=== PATIENT | female | born 2005 | race African-American/Black ===

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

== ENCOUNTER 2023-08-03 11:22 | Emergency (ER) | payer BC, SELFPAY ==
--- NOTE | ~2023-08-03 | US_ITS ---
EXAMINATION: US OB transvaginal DATE: 08/03/2023 13:11 INDICATION: Abdominal pain and vaginal bleeding during first trimester TECHNIQUE: Real-time pelvic transabdominal and transvaginal ultrasound was performed. COMPARISON: 11/07/2022 FINDINGS: The uterus measures 9.3 x 5.7 x 5.6 cm. There is a 4.6 x 3.8 x 4.2 cm isoechoic mass of the right uterine body which has the appearance of an intramural fibroid. There is an intrauterine gesta tional sac. A yolk sac is identified. heart motion is identified measuring 122 beats per minute (bpm) by M-mode Doppler. The crown rump length measures 4 mm, which correlates with an estimat ed gestational age of 6 weeks and 1 day(s) (+/-) 4 day(s). The right ovary measures 3.5 x 2.1 x 2.1 cm. The left ovary measures 3.0 x 1.7 x 2.0 cm. There is nor mal vascular flow in the ovaries. There is a small amount of free fluid in the pelvis. IMPRESSION: 1. Live intrauterine with an estimated gestational age of 6 weeks and 1 day(s) (+/-) 4 day( s) and an estimated delivery date of 03/27/2024. 2. Uterine mass with the appearance of a fibroid. Reviewed, dictated and finalized at location B. RAFT [employer]LECT[employer]ICIAN IMPRESSION: 1. Live intrauterine with an estimated gestational age of 6 weeks and 1 day(s) (+/-) 4 day(s) and an estimated delivery date of 03/27/2024. 2. Uterine mass with the appearance of a fibroid.
[2023-08-03 11:24] VITALS: BP 120/66; PULSE 99; RESP 18; TEMP 36.6; O2SAT 100
--- NOTE | 2023-08-03 11:45 | ED.PREGNANCY ---
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 She attributes it to underlying uterine fibroids. Positive test at home 2 weeks ago. She is also having abdominal pain and pain along mons pubis. Spotting started a few weeks ago. Light pink and then stopped. Restarted but only when she urinates. LMP 05/31/23; reported as normal (last period before that was May 05-). Has not taken any medications for pain. No dysuria, hematuria, urgency, frequency. OBGyn Kenna [facility] though has not yet established with them for this . Not currently taking any medications, no prenatals. Related Data Allergies Allergy/AdvReac Type Severity Reaction Status Date / Time No Known Allergies Allergy Verified 11/07/22 13:24 [facility] Past Medical History Medical History (Updated 08/12/23 @ 00:28 by Jasmine Simental MD) Fibroid, uterine Exam Narrative: GENERAL: Well-appearing, well-nourished, and in no acute distress. HEAD: Normocephalic, atraumatic. EYES: Non injected, non icteric; mild conjunctival pallor ENT: Nares clear, no rhinorrhea or epistaxis. NECK: Supple. CHEST: Speaks in full sentences No respiratory distress. HEART: Regular rate and rhythm. . ABDOMEN: Soft, nondistended. No TTP of abdomen or pelvis which is w/o rigidity or guarding. EXTREMITIES: Normal range of motion. No edema. SKIN: Warm, dry, no rash. NEURO: No focal deficits. Alert and oriented x3. PSYCH: Normal mood and affect. Course Vital Signs Vital signs: Vital Signs Temperature 98 F 08/03/23 11:24 Pulse Rate 99 08/03/23 11:24 Respiratory Rate 18 08/03/23 11:24 Blood Pressure 120/66 08/03/23 11:24 Pulse Oximetry 100 08/03/23 11:24 Oxygen Delivery Room Air 08/03/23 11:24 Temperature 97.5 F L 08/03/23 14:56 Pulse Rate 65 08/03/23 14:56 Respiratory Rate 16 08/03/23 14:56 Blood Pressure 118/71 08/03/23 14:56 Pulse Oximetry 100 08/03/23 14:56 Oxygen Delivery Room Air 08/03/23 11:24 MDM - OB/Uterine Contractions MDM Narrative Medical decision making narrative: 18 yo female with LMP 05/31/23 who presents with abdominal pain and vaginal spotting. History of fibroids which is what patient believes this is. Has not established with OBGyn during this ; location of fetus unknown at present. Hgb stable. US demonstrates IUP. Patient counseled on uncertain status at this point of . She is given strict ED return precautions and verifies understanding. Has eaten and PO challenged without emesis. Will Follow up with OBGYN. Stable for discharge. Differential Diagnosis Differential diagnosis: Likely other (normal ; ectopic ; spectrum of miscarriage) Lab Data Attestation: I reviewed the patient's lab results. Lab results narrative: Anemia, not transfusable. Normal renal function. Urinalysis without bacteriuria. 08/03/23 12:15 08/03/23 12:15 Labs: Lab Results 08/03/23 Range/Units 12:15 WBC 6.3 (4.5-10.0) K/mm3 RBC 4.56 (4.2-5.4) M/mm3 Hgb 11.8 L (12.0-15.0) g/dL Hct 37.4 (37.0-47.0) % MCV 82.0 (80-100) fl MCH 25.9 L (26-34) pg MCHC 31.6 L (32-36) g/dl RDW 14.0 (11.5-14.5) % Plt Count 276 (150-375) k/mm3 MPV 8.7 (7.4-10.4) fl Immature Gran % (Auto) 0.3 (0-0.5) % Neut % (Auto) 72.8 (45.5-73.1) % Lymph % (Auto) 18.7 (18.3-44.2) % [place] % (Auto) 7.7 (2.6-8.5) % Eos % (Auto) 0.2 (0-4.4) % Baso % (Auto) 0.3 (0.2-1.2) % Lymph # (Auto) 1.17 (0.9-3.2) K/mm3 [place] # (Auto) 0.5 (0.1-0.6) K/mm3 Eos # (Auto) 0.0 (0-0.3) K/mm3 Baso # (Auto) 0.0 (0.0-0.1) K/mm3 Abs Immat Gran (auto) 0.02 (0.00-0.031) K
[2023-08-03 12:24] LABS: Basophils Percent Auto 0.3 % (0.2-1.2); Eosinophils Percent Auto 0.2 % (0-4.4); Hematocrit 37.4 % (37.0-47.0); Hemoglobin 11.8 g/dL (12.0-15.0); Immature Granulocyte Absolute 0.02 K/mm3 (0.00-0.031); Immature Granulocyte Percent A 0.3 % (0-0.5); Lymphocytes Absolute Auto 1.17 K/mm3 (0.9-3.2); Lymphocytes Percent Auto 18.7 % (18.3-44.2); Mean Corpuscular HGB Conc 31.6 g/dl (32-36); Mean Corpuscular Hemoglobin 25.9 pg (26-34); Mean Platelet Volume 8.7 fl (7.4-10.4); Monocytes Absolute Auto 0.5 K/mm3 (0.1-0.6); Monocytes Percent Auto 7.7 % (2.6-8.5); Neutrophils Absolute Auto 4.6 K/mm3 (1.3-6.7); Neutrophils Percent Auto 72.8 % (45.5-73.1); Platelet Count Result 276 k/mm3 (150-375); Red Blood Count 4.56 M/mm3 (4.2-5.4); White Blood Count 6.3 K/mm3 (4.5-10.0)
[2023-08-03 12:26] LABS: Appearance Urine Clear (Clear); Bilirubin Urine Negative (Negative); Blood Urine Negative (Negative); Color Urine Yellow (Yellow); Glucose Urine UA Negative (Negative); Ketones Urine Negative (Negative); Leukocyte Esterase Ur Negative LEU/UL (Negative); Nitrate Urine Negative (Negative); Protein Urine Negative (Negative); Specific Grav Ur 1.019 (1.001-1.035); pH Urine 7.5 (5.0-9.0)
[2023-08-03 12:34] LABS: Add Urine Microscopic? NO
[2023-08-03 12:37] LABS: Alanine Aminotransferase 15 U/L (6-35); Albumin Level 4.4 g/dL (3.5-5.1); Alkaline Phosphatase 47 U/L (38-126); Anion Gap 9 mmol/L (8-16); Aspartate Amino Transferase 25 U/L (14-36); Bilirubin,Total 0.4 mg/dL (0.2-1.3); Blood Urea Nitrogen 8 mg/dL (7-17); Calcium 9.2 mg/dL (8.4-10.2); Carbon Dioxide 24 mmol/L (22-30); Chloride 103 mmol/L (98-107); Estimated CRCL calculation 70 ml/min; Estimated Glomerular Filt Rate > 60; Glucose 94 mg/dL (65-110); Potassium 3.9 mmol/L (3.4-5.0); Sodium 136 mmol/L (137-145)
[2023-08-03] MEDS: ACETAMINOPHEN 325 MG TABLET 650 MG PO (13:01)
[2023-08-03 14:56] VITALS: BP 118/71; PULSE 65; RESP 16; TEMP 36.4; O2SAT 100
== END 2023-08-03 14:58 | disposition home or self-care (01) ==
PROVIDERS: Emergency Provider Student in an Organized Health Care Education/Training Program
DX: O20.9 Hemorrhage in early pregnancy, unspecified (principal); O99.891 Other specified diseases and conditions complicating pregnancy; N85.9 Noninflammatory disorder of uterus, unspecified; Z3A.01 Less than 8 weeks gestation of pregnancy
CPT/HCPCS: 36415; 76817; 80053; 81003; 81025; 84702; 85025; 86850; 86900; 86901; 99284; A9270

== ENCOUNTER 2025-03-24 10:34 | Observation (INO) | payer BC, SELFPAY ==
[2025-03-24] VITALS (9 sets, daily range): BP systolic 105–119; BP diastolic 64–77; PULSE 63–81; RESP 12–22; TEMP 36.6–36.8; O2SAT 98–100; BMI 31.6
--- NOTE | ~2025-03-24 | CT_ITS ---
EXAMINATION: CT abdomen pelvis w con DATE: 03/24/2025 11:53 INDICATION: Right lower quadrant pain. TECHNIQUE: Computed tomography (CT) of the abdomen and pelvis was performed with intravenous contrast . The dose-length product was 391.36 mGy-cm. COMPARISON: CT abdomen and pelvis 11/07/2022 FINDINGS: Lung bases are clear. Moderate amount of sludge in the gallbladder. Mild central intrahepatic biliary ductal dilatation. No liver mass. The spleen, adrenal glands, kidneys, pancreas unremarkable. No enlarged lymph nodes in the abdomen or pelvis. Appendix is not dilated. There is a 3 mm appendicolith in the appendix. Uterus and ovaries are markedly heterogeneous with a small amount of surrounding fluid and fat strand ing. IMPRESSION: 1. Uterus and ovaries are markedly heterogeneous with a small amount of surrounding fluid and fat str anding. Findings are nonspecific. An infectious process is possible. Other etiologies are possible. A pelvic ultrasound is recommended. 2. No CT evidence for acute appendicitis. 3. Moderate amount of sludge in the gallbladder. Mild central intrahepatic biliary ductal dilatation. An ultrasound of the gallbladder is suggested. Reviewed, dictated and finalized at location A. IMPRESSION: 1. Uterus and ovaries are markedly heterogeneous with a small amount of surroun ding fluid and fat stranding. Findings are nonspecific. An infectious process i s possible. Other etiologies are possible. A pelvic ultrasound is recommended. 2. No CT evidence for acute appendicitis. 3. Moderate amount of sludge in the gallbladder. Mild central intrahepatic bili edilson ductal dilatation. An ultrasound of the gallbladder is suggested.
--- NOTE | ~2025-03-24 | US_ITS ---
EXAMINATION: US pelvic complete w TV DATE: 03/24/2025 13:48 INDICATION: Lower abdominal pain TECHNIQUE: Multiple transabdominal and endovaginal sonographic images of the pelvis were obtained. COMPARISON: None. FINDINGS: The uterus measures 8.0 x 4.2 x 4.9 cm. The endometrial complex measures 6 mm in thickness. section scar along the anterior lower uterine segment. 3.1 cm hypoechoic fibroid at the right-sided the uterine fundus. The right ovary measures 2.9 x 1.7 x 1.9 cm. The left ovary measures 3.1 x 1.8 x 2.3 cm. There are multiple small anechoic cysts/follicles in both ovaries. These are slightly larger and more numerous in the left ovary measuring up to 12 mm in maximal diameter. Vascular flow with art erial waveforms identified in both ovaries on color Doppler. There is a small amount of likely physio logic anechoic free fluid in the pelvis. IMPRESSION: 1. Severe in section scar along the anterior lower uterine segment and 3.1 cm likely fibroid at the r ight-sided the uterine fundus. Reviewed, dictated and finalized at location A. IMPRESSION: 1. Severe in section scar along the anterior lower uterine segment and 3.1 cm l ikely fibroid at the right-sided the uterine fundus.
--- NOTE | ~2025-03-24 | XR_ITS ---
EXAMINATION: XR ERCP DATE: 03/26/2025 13:50 CDT INDICATION: ABD PAIN . TECHNIQUE: 2 fluoroscopic images of the right upper quadrant were obtained during ERCP. Fluoroscopy e xposure time was 152.1 seconds. Air Kerma 16.36 mGy. DAP 0.50 mGym2. COMPARISON: Intraoperative cholangiogram 03/25/2025 FINDINGS/IMPRESSION: Fluoroscopic documentation of ERCP. Please refer to the operative note for complete procedural detail s. Reviewed, dictated and finalized at location K.
--- NOTE | ~2025-03-24 | XR_ITS ---
EXAMINATION: XR cholangiogram surg 1st inj DATE: 03/25/2025 17:25 CDT INDICATION: LAP HUSAM WITH IOCS . TECHNIQUE: 1 fluoroscopic image of the right upper quadrant were obtained during laparoscopic cholecy stectomy. Fluoroscopy exposure time was 6.9 seconds. Air Kerma 8.3 mGy. DAP 1.7 mGym2. COMPARISON: Right upper quadrant ultrasound and CT abdomen pelvis 03/24/2025 FINDINGS: A single image is available for review. Cine images were obtained but not saved or provided for readi ng. Catheter in the cystic duct. Somewhat long appearing cystic duct. Mild common hepatic and common bile duct dilation. The distal duct tapers, with no filling distal filling defect or forward movement of contrast into the duodenum. Small filling defect in a right hepatic bile duct branch, presumably a gas bubble, although a small stone is not excluded. IMPRESSION: Intraoperative angiogram during endoscopic cholecystectomy. Please refer to the operative note for co mplete procedural details. Reviewed, dictated and finalized at location K. IMPRESSION: Intraoperative angiogram during endoscopic cholecystectomy. Please refer to the operative note for complete procedural details.
--- NOTE | ~2025-03-24 | US_ITS ---
US right upper quadrant INDICATION: Right upper quadrant pain PROCEDURE: Realtime limited abdominal ultrasound. COMPARISON: No prior studies for comparison. FINDINGS: The pancreas is normal without focal mass or pancreatic ductal dilation. Liver echotexture is normal without focal mass or intrahepatic biliary dilatation. There is normal directional flow i n the portal vein. No gallbladder wall thickening or pericholecystic fluid. Common bile duct measures 7 mm. There are gallstones and sludge in the gallbladder.There is a sonographic Meek's sign. IMPRESSION: 1: There are gallstones and sludge in the gallbladder. There is a sonographic Meek's sign. The find ings are concerning for acute cholecystitis. However, there is no gallbladder wall thickening. Consid er a HIDA scan for further evaluation. Reviewed, dictated and finalized at location A. IMPRESSION: 1: There are gallstones and sludge in the gallbladder. There is a sonographic M urphy's sign. The findings are concerning for acute cholecystitis. However, the re is no gallbladder wall thickening. Consider a HIDA scan for further evaluati on.
[2025-03-24 11:02] LABS: BEDSIDEPREGUCG Negative (Negative)
[2025-03-24 11:14] LABS: Hematocrit 37.2 % (37.0-47.0); Hemoglobin 12.3 g/dL (12.0-15.0); Immature Granulocyte Percent A 0.1 % (0-0.5); Lymphocytes Absolute Auto 1.63 K/mm3 (0.9-3.2); Mean Corpuscular HGB Conc 33.1 g/dl (32-36); Mean Corpuscular Hemoglobin 26.6 pg (26-34); Mean Corpuscular Volume 80.3 fl (80-100); Nucleated Red Blood Cells Absolute Auto 0.000 K/mm3 (0.0-0.012); Nucleated Red Blood Cells Perc 0.0 % (0.0-0.2); Platelet Count Result 266 k/mm3 (150-375); Red Blood Count 4.63 M/mm3 (4.2-5.4); White Blood Count 8.0 K/mm3 (4.5-10.0)
[2025-03-24 11:18] LABS: Add Urine Microscopic? YES; Appearance Urine Clear (Clear); Glucose Urine UA Negative (Negative); Leukocyte Esterase Ur Trace LEU/UL (Negative); Nitrate Urine Positive (Negative); Non Pathogenic Casts 0-2; Specific Grav Ur 1.036 (1.001-1.035)
--- OUTSIDE RECORDS SUMMARY | 2025-03-24 11:21 | XMS_ITS | Clinical Summary ---
Author Organization [facility] Address [facility] [place] [address] Care Team Providers Care Facility Sales And Admin Name Role Phone None, Provider MD Primary Care Provider Unavaila ble Allergies No known active allergies Medications vitamin, low iron, ( VITAMIN WITH IRON) 27-0.8 MG tablet Take 1 tablet by mouth daily. Active Active Problems Problem Noted Date Diagnosed Date S/P section 03/15/2024 Resolved Problems Problem Noted Date Diagnosed Date Resolved Date ([facility]) 03/12/2024 03/15/20 24 Social History Tobacco Use Types Packs/Day Years Used Date Smoking Tobacco: Never Smokeless Tobacco: Never Tobacco Cessation:Counseling Given: Not Answered Alcohol Use Standard Drinks/Week Comments Not Currently 0 (1 standard drink = 0.6 oz pur e alcohol) B1300 Health Literacy Answer Date Recor ded How often do you need to hav e someone help you when you read instructions, pamphlets, or other written material from your doctor or pharmacy? Rarely 03/13/2024 [facility] Utilities Answer Date Recorded In the past 12 months has [facility] [employer], [employer], or water [employer] threatened to shut off services in your home? No 03/13/2024 Humiliation, Afraid, Rape, and Kick questionnair e Answer Date Recorded Within the last year, have y ou been afraid of your partner or ex-partner? No 03/13/2024 Within the last year, have y ou been humiliated or emotionally abused in other ways by your partner or ex-partner? No Within the last year, have y ou been kicked, hit, slapped, or otherwise physically hurt by your partner or ex-partner? No 03/13/2024 Within the last year, have y ou been raped or forced to have any kind of sexual activity by your partner or ex-partner? No 03/13/2024 Social Connection and Isolat ion Panel [NHANES] Answer Date Recorded In a typical week, how many times do you talk on the phone with family, friends, or neighbors? More than three times a week 03/13/2024 How often do you get togethe r with friends or relatives? Twice a week 03/13/2024 How often do you attend chur or sikhism services? Never 03/13/2024 Do you belong to any clubs o r organizations such as episcopal groups, unions, fraternal or athletic groups, or school groups? No 03/13/2024 How often do you attend meet ings of the clubs or organizations you belong to? Never 03/13/2024 Are you , , di vorced, , never , or living with a partner? Never 03/13/2024 AUDIT-C Answer Date Recorded Q1: How often do you have a drink containing alcohol? Never 03/13/2024 Q2: How many drinks containi ng alcohol do you have on a typical day when you are drinking? Patient does not drink Q3: How often do you have si x or more drinks on one occasion? Never 03/13/2024 Overall Financial Resource Strain (CARDIA) Answe r Date Recorded How hard is it for you to pa y for the very basics like food, housing, medical care, and heating? Not hard at all 03/13/2024 PHQ-2 Answer Date Recorded Patient Health Questionnaire-2 Score 0 03/14/2024 [facility] - Occupational Stress Questionnaire Answer Date Recorded Do you feel stress - tense, restless, nervous, or anxious, or unable to sleep at night because your mind is troubled all the time - these days? Not at all 03/13/2024 Exercise Vital Sign Answer Date Recorde d On average, how many days pe r week do you engage in moderate to strenuous exercise (like a brisk walk)? 2 days 03/13/2024 On average, how many minutes do you engage in exercise at this level? 20 min 03/13/2024 Hunger Vital Sign Answer Date Recorded Within the past 12 months, y ou worried that your food would run out before you got the money to buy more. Never true 03/13/20 24 Within the past 12 months, t he food you bought just didn't last and you didn't have money to get more. Never true 03/13/2024 PRAPARE - Transportation Answer Date Re corded In the past 12 months, has l ack of transportation kept you from medical appointments or from getting medications? No 08/2023 In the past 12 months, has l ack of transportation kept you from meetings, work, or from getting things needed for daily living? No 03/13/2024 Housing Stability Vital Sign Answer Sergio e Recorded In the last 12 months, was t here a time when you were not able to pay the mortgage or rent on time? Patient declined 03/13/20 24 Number of Times Moved in the Last Year Not on fi le 03/13/2024 Homeless in the Last Year Not on file 2023 Comments No Sex and Gender Information Value Date Recorded Sex Assigned at Not on file Legal Sex Female 8:59 PM CDT Gender Identity Not on file Sexual Orientation Not on file Last Filed Vital Signs Vital Sign Reading Time Taken Comments Blood Pressure 117/83 03/15/2024 9:00 AM CDT Pulse 102 03/15/2024 9:00 AM CDT Temperature 37 C (98.6 F) 03/15/2024 9:00 AM CDT Respiratory Rate 18 03/15/2024 9:00 AM CDT Oxygen Saturation 98% 03/15/2024 9:00 AM CDT Inhaled Oxygen Concentration - - Weight 78.9 kg (174 lb) 03/12/2024 3:00 PM CDT Height 152.4 cm (5') 03/12/2024 3:00 PM CDT Body Mass Index 33.98 03/12/2024 3:00 PM CDT Plan of Treatment Health Maintenance Due Date Last Done Comments Cervical Cancer Screening Pap Smear (Age 21 to 29) Every 3 Years 2003 Cervical Cancer Screening 2003 Annual Physical 2006 Chlamydia Screening Females ages 16-24 2019 Meningococcal B Vaccine (1 of 2 - Standard) 2019 Hepatitis C 2021 COVID-19 Vaccine ( season) 2024 08/11/2021, 11/29/2020, 11/08/2020 DTaP, Tdap and Td Vaccines (9 - Td or Tdap) 01/24/2034 01/25/2024, 02/05/2019, 01/13/2014, Additional history exists Hepatitis B Vaccines Completed 2003, 2003, 2003, Additional history exists Pneumococcal Vaccine: Pediatrics (0 to 5 Years) and At-Risk Patients (6 to 49 Years) Aged Out 07/18/2006, 2003, 2003, Additional history exists No longer eligible based on patient's age to complete this topic HPV Vaccines Completed 05/17/2015, 07/13, 07/22/2014, Additional history exists Meningococcal Vaccine Aged Out 02/05/2019, 014 No longer eligible based on patient's age to complete this topic RSV Immunizations Under 20 Months Aged Out No longer eligible based on patient's age to complete this topic Insurance [facility] [employer] [facility] Advance Directives * Full Code (Latest Code Status on File) Date Activated Date Inactivated Comments 03/13/2024 5:15 AM 03/15/2024 7:49 PM * Full Code Date Activated Date Inactivated Comments 03/12/2024 5:32 PM 03/13/2024 2:55 AM Care Teams Facility Sales And Admin Relationship Specialty Start Date End Date None, Provider, MD PCP - General UNKNOWN PHYSICIAN SPECIALTY 03/12/24
[2025-03-24] MEDS: SODIUM CHLORIDE 0.9% IV 1,000 ML 999 ML IV CONT (11:32)
[2025-03-24 11:34] LABS: Alanine Aminotransferase 69 U/L (6-35); Albumin Level 4.3 g/dL (3.5-5.1); Alkaline Phosphatase 81 U/L (38-126); Anion Gap 10 mmol/L (4-12); Aspartate Amino Transferase 99 U/L (14-36); Bilirubin,Total 1.5 mg/dL (0.2-1.3); Blood Urea Nitrogen 8 mg/dL (7-17); Calcium 9.1 mg/dL (8.4-10.2); Carbon Dioxide 25 mmol/L (22-30); Chloride 104 mmol/L (98-107); Estimated CRCL calculation 78 ml/min; Estimated Glomerular Filt Rate > 60; Glucose 95 mg/dL (65-110); Lipase 143 U/L (23-300); Potassium 3.6 mmol/L (3.4-5.0); Sodium 139 mmol/L (137-145); Total Protein 7.8 g/dL (6.3-8.2)
--- NOTE | 2025-03-24 11:37 | ED.ABDPAIN ---
HPI - Abdominal Pain General Chief Complaint: Abdominal Pain <Daina Rojo PA-C - Last Filed: 03/24/25 17:31> Stated Complaint: abdominal pain with vomiting since February <Daina Rojo PA-C - Last Filed: 03/24/25 17:31> Time Seen by Provider: 03/24/25 11:08 <Daina Rojo PA-C - Last Filed: 03/24/25 17:31> Source: patient <Daina Rojo PA-C - Last Filed: 03/24/25 17:31> Mode of arrival: ambulatory <Daina Rojo PA-C - Last Filed: 03/24/25 17:31> Limitations: no limitations <Daina Rojo PA-C - Last Filed: 03/24/25 17:31> History of Present Illness HPI narrative: This is a 18-year-old female that presents emergency department for right-sided abdominal pain. Ongoing over the last several weeks. Reports associated nausea and vomiting. Worse after eating. Denies fevers, dysuria, hematuria, diarrhea. <Daina Rojo PA-C - Last Filed: 03/24/25 17:31> Related Data Allergies/Adverse Reactions: Allergies Allergy/AdvReac Type Severity Reaction Status Date / Time No Known Allergies Allergy Verified 03/24/25 10:58 <Daina Rojo PA-C - Last Filed: 03/24/25 17:31> Review of Systems Review of Systems: All systems reviewed & are unremarkable except as noted in HPI and below <Daina Rojo PA-C - Last Filed: 03/24/25 17:31> [facility] Past Medical History Medical History: Medical History (Updated 03/24/25 @ 17:26 by Daina Rojo PA-C) Fibroid, uterine <Daina Rojo PA-C - Last Filed: 03/24/25 17:31> Surgical History Surgical History: Surgical History (Updated 03/24/25 @ 11:38 by Daina Rojo PA-C) History of section <Daina Rojo PA-C - Last Filed: 03/24/25 17:31> Exam Narrative: GENERAL: Well-appearing, well-nourished, and in no acute distress. HEAD: Normocephalic, atraumatic. EYES: EOMI. CHEST: Clear to auscultation. No respiratory distress. No wheezes rales or rhonchi HEART: Regular rate and rhythm. No murmur heard. Normal peripheral pulses. ABDOMEN: Soft, nondistended, normal active bowel sounds. Tender to palpation in the right upper quadrant, without guarding EXTREMITIES: Normal range of motion. No edema. SKIN: Warm, dry, no rash. NEURO: No focal deficits. Alert and oriented x3. PSYCH: Normal mood and affect <Daina Rojo PA-C - Last Filed: 03/24/25 17:31> Course Course Emergency Course: Spoke with patient about her workup and conversation with surgery. She does not feel comfortable going home at this time <Daina Rojo PA-C - Last Filed: 03/24/25 17:31> [employer] WORKER [employer]IN[employer]/PA Physician Supervision For this patient encounter, I reviewed the SOCIAL WORKER CLINICAL or PA documentation, treatment plan, and was responsible for the medical decision making; and I had [id number] time with this patient. <Doni Rodriguez MD - Last Filed: 03/24/25 17:45> Consultations Consultation #1: Spoke with Dr. Miller about patient and workup. Will be given option for inpatient management versus follow up in clinic. <Daina Rojo PA-C - Last Filed: 03/24/25 17:31> Date: 03/24/25 <Daina Rojo PA-C - Last Filed: 03/24/25 17:31> Consultation #2: Spoke with hospitalist about patient workup who accepts admission <Daina Rojo PA-C - Last Filed: 03/24/25 17:31> Date: 03/24/25 <Daina Rojo PA-C - Last Filed: 03/24/25 17:31> Vital Signs Vital signs: Vital Signs Pulse Rate 81 03/24/25 10:50 Respiratory Rate 20 03/24/25 10:50 Blood Pressure 107/73 03/24/25 10:50 Pulse Oximetry 98 03/24/25 10:50 Oxygen Delivery Room Air 03/24/25 10:50 Temperature 98.2 F 08/12/25 16:19 Pulse Rate 68 03/24/25 17:04 Respiratory Rate 13 03/24/25 17:04 Blood Pressure 109/64 03/24/25 17:04 Pulse Oximetry 100 03/24/25 17:04 Oxygen Delivery Room Air 03/24/25 10:50 <Daina Rojo PA-C - Last Filed: 03/24/25 17:31> Vital Signs Pulse Rate 81 03/24/25 10:50 Respiratory Rate 20 03/24/25 10:50 Blood Pressure 107/73 03/24/25 10:50 Pulse Oximetry 98 03/24/25 10:50 Oxygen Delivery Room Air 03/24/25 10:50 Temperature 98.2 F 03/24/25 16:19 Pulse Rate 68 03/24/25 17:04 Respiratory Rate 13 03/24/25 17:04 Blood Pressure 109/64 03/24/25 17:04 Pulse Oximetry 100 03/24/25 17:04 Oxygen Delivery Room Air 03/24/25 10:50 <Doni Rodriguez MD - Last Filed: 03/24/25 17:45> MDM - Abdominal Pain MDM Narrative Medical decision making narrative: Patient presents the emergency department for abdominal pain, nausea and vomiting. Ongoing over the last couple of weeks. Her vitals are stable. She is afebrile and nontoxic appearing. Cbc without leukocytosis. Metabolic panel with transaminitis, mild hyperbilirubinemia. Lipase is normal. Urine is nitrite positive, although many squamous epithelial cells noted. This will be sent for culture. Patient denies any urinary symptoms. test is negative. CT abdomen pelvis shows uterus and ovaries markedly heterogenous, nonspecific. Recommend pelvic ultrasound. Moderate amount of sludge in the gallbladder. Mild central intrahepatic biliary ductal dilation. Ultrasound suggested. Right upper quadrant ultrasound shows gallstones, sludge in the gallbladder. Sonographic Meek sign. Pelvic ultrasound shows severe scar along the lower anterior uterine segment, uterine fibroid, ovarian cysts. Spoke with Dr. Miller about patient and workup. Will be given option for inpatient management versus follow up in clinic. Spoke with patient about her workup and conversation with surgery. She does not feel comfortable going home at this time. Spoke with hospitalist about patient workup who accepts admission <Daina Rojo PA-C - Last Filed: 03/24/25 17:31> Differential Diagnosis Differential diagnosis: Likely abdominal pain, gastroenteritis and other (Biliary colic, cholecystitis) <Daina Rojo PA-C - Last Filed: 03/24/25 17:31> Lab Data Attestation: I reviewed the patient's lab results. <Daina Rojo PA-C - Last Filed: 03/24/25 17:31> Result diagrams: 03/24/25 10:59 03/24/25 10:59 <Daina Rojo PA-C - Last Filed: 03/24/25 17:31> Labs: Lab Results 03/24/25 03/24/25 Range/Units 10:58 10:59 WBC 8.0 (4.5-10.0) K/mm3 RBC 4.63 (4.2-5.4) M/mm3 Hgb 12.3 (12.0-15.0) g/dL Hct 37.2 (37.0-47.0) % MCV 80.3 (80-100) fl MCH 26.6 (26-34) pg MCHC 33.1 (32-36) g/dl RDW 13.2 (11.5-14.5) % Plt Count 266 (150-375) k/mm3 MPV 8.5 (7.4-10.4) fl Immature Gran % (Auto) 0.1 (0-0.5) % Neut % (Auto) 70.5 (45.5-73.1) % Lymph % (Auto) 20.4 (18.3-44.2) % [place] % (Auto) 8.3 (2.6-8.5) % Eos % (Auto) 0.3 (0-4.4) % Baso % (Auto) 0.4 (0.2-1.2) % Lymph # (Auto) 1.63 (0.9-3.2) K/mm3 [place] # (Auto) 0.7 H (0.1-0.6) K/mm3 Eos # (Auto) 0.0 (0-0.3) K/mm3 Baso # (Auto) 0.0 (0.0-0.1) K/mm3 Abs Immat Gran (auto) 0.01 (0.00-0.031) K/mm3 Absolute Neuts (auto) 5.6 (1.3-6.7) K/mm3 Absolute Nucleated RBC 0.000 (0.0-0.012) K/mm3 Nucleated RBC % 0.0 (0.0-0.2) % Sodium 139 (137-145) mmol/L Potassium 3.6 (3.4-5.0) mmol/L Chloride 104 (98-107) mmol/L Carbon Dioxide 25 (22-30) mmol/L Anion Gap 10 (4-12) mmol/L BUN 8 (7-17) mg/dL Creatinine 0.85 (0.7-1.0) mg/dL Estim Creat Clear Calc 78 ml/min Estimated GFR > 60 (59 - ) Glucose 95 (65-110) mg/dL Calcium 9.1 (8.4-10.2) mg/dL Total Bilirubin 1.5 H (0.2-1.3) mg/dL AST 99 H (14-36) U/L ALT 69 H (6-35) U/L Alkaline Phosphatase 81 (38-126) U/L Total Protein 7.8 (6.3-8.2) g/dL Albumin 4.3 (3.5-5.1) g/dL Lipase 143 (23-300) U/L Urine Color Dark yellow (Yellow) Urine Appearance Clear (Clear) Urine pH 6.5 (5.0-9.0) Ur Specific [place] 1.036 H (1.001-1.035) Urine Protein 1+ H (Negative) mg/dL Urine Glucose (UA) Negative (Negative) mg/dL Urine Ketones Trace H (Negative) mg/dL Ur Blood (Man) Negative (Negative) Urine Nitrate Positive H (Negative) Urine Bilirubin 2+ H (Negative) Urine Urobilinogen 1.0 (<2.0) mg/dL Leukocyte Esterase Rfl Trace H (Negative) GLENDA/UL Urine RBC 0-2 (0-2) /hpf Urine WBC 0-5 (0-3) /hpf Ur Squamous Epith Cells Many H (Few) /hpf Urine Bacteria 2+ H /hpf Urine Casts 0-2 POC Urine HCG, Qual Negative (Negative) <Daina Rojo PA-C - Last Filed: 03/24/25 17:31> Lab Results 03/24/25 03/24/25 Range/Units 10:58 10:59 WBC 8.0 (4.5-10.0) K/mm3 RBC 4.63 (4.2-5.4) M/mm3 Hgb 12.3 (12.0-15.0) g/dL Hct 37.2 (37.0-47.0) % MCV 80.3 (80-100) fl MCH 26.6 (26-34) pg MCHC 33.1 (32-36) g/dl RDW 13.2 (11.5-14.5) % Plt Count 266 (150-375) k/mm3 MPV 8.5 (7.4-10.4) fl Immature Gran % (Auto) 0.1 (0-0.5) % Neut % (Auto) 70.5 (45.5-73.1) % Lymph % (Auto) 20.4 (18.3-44.2) % [place] % (Auto) 8.3 (2.6-8.5) % Eos % (Auto) 0.3 (0-4.4) % Baso % (Auto) 0.4 (0.2-1.2) % Lymph # (Auto) 1.63 (0.9-3.2) K/mm3 [place] # (Auto) 0.7 H (0.1-0.6) K/mm3 Eos # (Auto) 0.0 (0-0.3) K/mm3 Baso # (Auto) 0.0 (0.0-0.1) K/mm3 Abs Immat Gran (auto) 0.01 (0.00-0.031) K/mm3 Absolute Neuts (auto) 5.6 (1.3-6.7) K/mm3 Absolute Nucleated RBC 0.000 (0.0-0.012) K/mm3 Nucleated RBC % 0.0 (0.0-0.2) % Sodium 139 (137-145) mmol/L Potassium 3.6 (3.4-5.0) mmol/L Chloride 104 (98-107) mmol/L Carbon Dioxide 25 (22-30) mmol/L Anion Gap 10 (4-12) mmol/L BUN 8 (7-17) mg/dL Creatinine 0.85 (0.7-1.0) mg/dL Estim Creat Clear Calc 78 ml/min Estimated GFR > 60 (59 - ) Glucose 95 (65-110) mg/dL Calcium 9.1 (8.4-10.2) mg/dL Total Bilirubin 1.5 H (0.2-1.3) mg/dL AST 99 H (14-36) U/L ALT 69 H (6-35) U/L Alkaline Phosphatase 81 (38-126) U/L Total Protein 7.8 (6.3-8.2) g/dL Albumin 4.3 (3.5-5.1) g/dL Lipase 143 (23-300) U/L Urine Color Dark yellow (Yellow) Urine Appearance Clear (Clear) Urine pH 6.5 (5.0-9.0) Ur Specific [place] 1.036 H (1.001-1.035) Urine Protein 1+ H (Negative) mg/dL Urine Glucose (UA) Negative (Negative) mg/dL Urine Ketones Trace H (Negative) mg/dL Ur Blood (Man) Negative (Negative) Urine Nitrate Positive H (Negative) Urine Bilirubin 2+ H (Negative) Urine Urobilinogen 1.0 (<2.0) mg/dL Leukocyte Esterase Rfl Trace H (Negative) GLENDA/UL Urine RBC 0-2 (0-2) /hpf Urine WBC 0-5 (0-3) /hpf Ur Squamous Epith Cells Many H (Few) /hpf Urine Bacteria 2+ H /hpf Urine Casts 0-2 POC Urine HCG, Qual Negative (Negative) <Doni Rodriguez MD - Last Filed: 03/24/25 17:45> Imaging Data Radiologist's impression: ITS Impressions Abdomen/Pelvis CT 03/24/25 11:59 IMPRESSION: 1. Uterus and ovaries are markedly heterogeneous with a small amount of surrounding fluid and fat stranding. Findings are nonspecific. An infectious process is possible. Other etiologies are possible. A pelvic ultrasound is recommended. 2. No CT evidence for acute appendicitis. 3. Moderate amount of sludge in the gallbladder. Mild central intrahepatic biliary ductal dilatation. An ultrasound of the gallbladder is suggested. Upper Quadrant Ultrasound 03/24/25 13:54 IMPRESSION: 1: There are gallstones and sludge in the gallbladder. There is a sonographic Meek's sign. The findings are concerning for acute cholecystitis. However, there is no gallbladder wall thickening. Consider a HIDA scan for further evaluation. Pelvic/Transvag US 03/24/25 13:57 IMPRESSION: 1. Severe in section scar along the anterior lower uterine segment and 3.1 cm likely fibroid at the right-sided the uterine fundus. <Daina Rojo PA-C - Last Filed: 03/24/25 17:31> ITS Impressions Abdomen/Pelvis CT 03/24/25 11:59 IMPRESSION: 1. Uterus and ovaries are markedly heterogeneous with a small amount of surrounding fluid and fat stranding. Findings are nonspecific. An infectious process is possible. Other etiologies are possible. A pelvic ultrasound is recommended. 2. No CT evidence for acute appendicitis. 3. Moderate amount of sludge in the gallbladder. Mild central intrahepatic biliary ductal dilatation. An ultrasound of the gallbladder is suggested. Upper Quadrant Ultrasound 03/24/25 13:54 IMPRESSION: 1: There are gallstones and sludge in the gallbladder. There is a sonographic Meek's sign. The findings are concerning for acute cholecystitis. However, there is no gallbladder wall thickening. Consider a HIDA scan for further evaluation. Pelvic/Transvag US 03/24/25 13:57 IMPRESSION: 1. Severe in section scar along the anterior lower uterine segment and 3.1 cm likely fibroid at the right-sided the uterine fundus. <Doni Rodriguez MD - Last Filed: 03/24/25 17:45> Critical Care Time Critical Care Time Critical Care Time: No <Daina Rojo PA-C - Last Filed: 03/24/25 17:31> Discharge Plan Discharge Clinical Impression: Biliary colic, Transaminitis <Daina Rojo PA-C - Last Filed: 03/24/25 17:31> Patient Disposition: Still a Patient <TC Power Last Filed: 03/24/25 17:31> Condition: Stable <TC Power Last Filed: 03/24/25 17:31>
[2025-03-24] MEDS: ONDANSETRON INJ 4 MG/2 ML VIAL IV PUSH (11:41)
[2025-03-24] MEDS: MORPHINE SULFATE (*CRX) 4 MG/ML INJ IV PUSH (11:41)
--- OUTSIDE RECORDS SUMMARY | 2025-03-24 12:03 | XMS_ITS | Clinical Summary ---
Author Organization [facility] Address [facility] [place] [address] Care Team Providers Care Cripple Cutter Name Role Phone None, Provider MD Primary Care Provider Unavaila ble Allergies No known active allergies Medications vitamin, low iron, ( VITAMIN WITH IRON) 27-0.8 MG tablet Take 1 tablet by mouth daily. Active Active Problems Problem Noted Date Diagnosed Date S/P section 03/15/2024 Resolved Problems Problem Noted Date Diagnosed Date Resolved Date ([facility]) 03/12/2024 03/15/20 24 Social History Tobacco Use [...] from your doctor or pharmacy? Rarely 03/13/2024 [facility] Utilities Answer Date Recorded In the past 12 months has [facility] listedplaces, [employer], or water [employer] threatened to shut off services in your [...] How often do you attend chur or hoahaoism services? Never 03/13/2024 Do you belong to any clubs o r organizations such as yarsani groups, unions, fraternal or athletic groups, or [...] Recorded Patient Health Questionnaire-2 Score 0 03/14/2024 [facility] - Occupational Stress Questionnaire Answer Date [...] patient's age to complete this topic Insurance [facility] [employer] Payments [facility] Advance Directives * Full Code (Latest Code Status on File) Date Activated Date Inactivated Comments 03/13/2024 5:15 AM 03/15/2024 7:49 PM * Full Code Date Activated Date Inactivated Comments 03/12/2024 5:32 PM 03/13/2024 2:55 AM Care Teams Cripple Cutter Relationship Specialty Start Date End Date None, Provider, MD PCP - General UNKNOWN PHYSICIAN SPECIALTY 03/12/24
[2025-03-24] MEDS: KETOROLAC 15 MG/ML VIAL (*BKC) IV PUSH (14:43)
--- NOTE | 2025-03-24 16:17 | P.CONGS_ITS ---
Assessment and Plan Assessment and plan (1) Biliary colic: Code(s): K80.50 - Calculus of bile duct without cholangitis or cholecystitis without obstruction Status: Acute Assessment and Plan: Patient presented to the ED with roughly 1 month of right upper quadrant pain and nausea and vomiting. The pain recently increased in severity and began radiating to her back. Patient was unable to keep any food down so she eventually presented to the ED. workup included CT of the abdomen and pelvis and right upper quadrant ultrasound that demonstrated gallstones and sludge in the gallbladder. Patient is afebrile with normal white blood cell count. Liver enzymes elevated. Patient will be admitted and kept NPO. Will order MRCP for tomorrow and follow with serial abdominal exams and daily labs. Plan Discussed patient's case and plan of care with Dr. Miller. History of Present Illness Consult details Consult date: 03/24/25 Reason for consult: other (Biliary colic) Requesting physician: Daina Rojo PA-C Narrative: Patient is a 20-year-old female past medical history of uterine fibroid who we have been asked to see in surgical consultation for biliary colic. Patient presented to the ED today with complaints of roughly 1 month of right upper quadrant pain and nausea/vomiting that recently increased in severity last night. Patient states that the nausea and vomiting has been intermittent since February 26 this year. At the beginning of this month she noticed the symptoms increased in severity. Last night she had several episodes of emesis with associated right upper quadrant pain radiating to her back. She tried some broth and a muffin but was unable to keep them down. The pain became excruciating, which prompted the patient to present to the ED. No constipation or diarrhea. No recent sick contacts or travel out of country. Prior abdominal surgeries include . She does not know any specific food triggers, as she states any food she eats now induces vomiting. Last bowel movement this morning. Last ate last night. Workup in the ED included labs that demonstrated a normal white blood cell count. Elevated liver enzymes. Afebrile. CT of the abdomen and pelvis demonstrated moderate amount of sludge in the gallbladder. Mild central intrahepatic biliary ductal dilation. Right upper quadrant ultrasound was obtained and demonstrated no gallbladder wall thickening or pericholecystic fluid. Common bile duct measuring 7 mm. Gallstones and sludge in the gallbladder. Sonographic Meek sign positive. Upon my examination of the patient, she has focal tenderness to right upper quadrant. Of note, CT also demonstrated uterus and ovaries markedly heterogenous with a small amount of surrounding fluid and fat stranding. Findings nonspecific infectious process possible. Other etiologies possible. Pelvic transvaginal ultrasound obtained and demonstrated severe scar along the anterior lower uterine segment 3 0.1 cm likely fibroid a right side of the uterine fundus. Patient states that she does have a history of a fibroid that is managed with her OBGYN. She also notes history of menorrhagia and she is currently on oral control pills. Patient denies any vaginal burning or pain, pain with urination, vaginal discharge, new sexual partners. [facility] Past Medical History Medical History (Updated 03/24/25 @ 17:02 by Elizabeth Campoverde PA-C) Fibroid, uterine Surgical History Surgical History (Updated 03/24/25 @ 11:38 by Daina Rojo PA-C) History of section Meds Home Medications and Allergies Home Medications ?Medication ?Instructions ?Recorded ?Confirmed ?Type ondansetron 4 mg disintegrating 4 mg PO Q8H PRN nausea and 11/07/22 Rx tablet vomiting #14 tabs acetaminophen 500 mg capsule 500 mg PO Q6H PRN pain #14 caps 08/03/23 Rx vitamins 30 30 mg iron-10 30 cap PO DAILY #30 caps 08/03/23 Rx mg iron-folic acid 1 mg-om3 capsule Allergies Allergy/AdvReac Type Severity Reaction Status Date / Time No Known Allergies Allergy Verified 03/24/25 10:58 Vital Signs Vital Signs - 24 hr 03/24/25 10:50 03/24/25 10:56 03/24/25 11:32 Temperature 97.8 F Pulse Rate 81 74 77 Respiratory Rate 20 22 H 12 Blood Pressure 107/73 107/73 119/77 Pulse Oximetry 98 100 100 Oxygen Delivery Room Air 03/24/25 13:40 03/24/25 14:47 Temperature Pulse Rate 68 64 Respiratory Rate 18 18 Blood Pressure 107/71 105/71 Pulse Oximetry 100 100 Oxygen Delivery Exam 2 Const: General: comfortable and no acute distress Eyes: General: appearance normal, both eyes and all related structures Neck: Neck: supple Resp: Effort & Inspection: normal respiratory effort Cardio: Rate: regular rate GI: Inspection: non-distended GI Palp: Yes Soft to palpation, Yes Tenderness to palpation present (GI) (Right upper quadrant), No Guarding due to palpation present (GI) and No Hernia present Skin: General skin exam: normal color Extrem: General: normal to inspection Results Labs 03/24/25 10:59 03/24/25 10:59 Labs: Abnormal lab results 03/24/25 Range/Units 10:59 [place] # (Auto) 0.7 H (0.1-0.6) K/mm3 Total Bilirubin 1.5 H (0.2-1.3) mg/dL AST 99 H (14-36) U/L ALT 69 H (6-35) U/L Ur Specific [place] 1.036 H (1.001-1.035) Urine Protein 1+ H (Negative) mg/dL Urine Ketones Trace H (Negative) mg/dL Urine Nitrate Positive H (Negative) Urine Bilirubin 2+ H (Negative) Leukocyte Esterase Rfl Trace H (Negative) GLENDA/UL Ur Squamous Epith Cells Many H (Few) /hpf Urine Bacteria 2+ H /hpf Diabetes panel 03/24/25 Range/Units 10:59 Sodium 139 (137-145) mmol/L Potassium 3.6 (3.4-5.0) mmol/L Chloride 104 (98-107) mmol/L Carbon Dioxide 25 (22-30) mmol/L BUN 8 (7-17) mg/dL Creatinine 0.85 (0.7-1.0) mg/dL Glucose 95 (65-110) mg/dL Calcium 9.1 (8.4-10.2) mg/dL AST 99 H (14-36) U/L ALT 69 H (6-35) U/L Alkaline Phosphatase 81 (38-126) U/L Total Protein 7.8 (6.3-8.2) g/dL Albumin 4.3 (3.5-5.1) g/dL Calcium panel 03/24/25 Range/Units 10:59 Calcium 9.1 (8.4-10.2) mg/dL Albumin 4.3 (3.5-5.1) g/dL Pituitary panel 03/24/25 Range/Units 10:59 Sodium 139 (137-145) mmol/L Potassium 3.6 (3.4-5.0) mmol/L Chloride 104 (98-107) mmol/L Carbon Dioxide 25 (22-30) mmol/L BUN 8 (7-17) mg/dL Creatinine 0.85 (0.7-1.0) mg/dL Glucose 95 (65-110) mg/dL Calcium 9.1 (8.4-10.2) mg/dL Adrenal panel 03/24/25 Range/Units 10:59 Sodium 139 (137-145) mmol/L Potassium 3.6 (3.4-5.0) mmol/L Chloride 104 (98-107) mmol/L Carbon Dioxide 25 (22-30) mmol/L BUN 8 (7-17) mg/dL Creatinine 0.85 (0.7-1.0) mg/dL Glucose 95 (65-110) mg/dL Calcium 9.1 (8.4-10.2) mg/dL Total Bilirubin 1.5 H (0.2-1.3) mg/dL AST 99 H (14-36) U/L ALT 69 H (6-35) U/L Alkaline Phosphatase 81 (38-126) U/L Total Protein 7.8 (6.3-8.2) g/dL Albumin 4.3 (3.5-5.1) g/dL All other labs normal.
[2025-03-24] MEDS: SODIUM CHLORIDE 0.9% IV 1,000 ML 125 ML IV CONT ×2 (17:30→23:16)
--- NOTE | 2025-03-24 17:40 | ADMGEN ---
This patient, Kenny Mancini, was admitted to Medical Room 346-01. Patient/family oriented to hospital policies and general routines including ID bracelet, bed and alarms, visiting hours, pain management, procedures, bathroom and other care routines, personal items, smoking policy, room service/diet, and visiting hours. Information on how to activate the Rapid Response Team has been discussed. Patient/Family are encouraged to report perceived risks to care and to ask questions if they do not understand what they are told or what they should do.
--- NOTE | 2025-03-24 18:19 | PM.IMHP ---
H&P: HPI History of Present Illness Date/Time: 03/24/25 18:19 Chief Complaint: Abdominal Pain Narrative: 20 y/o F with PMH of presents here with abdominal pain. The patient presents here from home for further evaluation of abdominal pain. She reports onset of right sided abdominal pain starting around February 26. She describes the pain as more so in her lower quadrant, radiation into her lower back, intermittent, and episodes last for a few hours. Abdominal pain is accompanied by a nausea and vomiting. She describes her emesis as bile like. Symptoms worsen postprandial. Will have episodes of sweating and cold sweats when the pain occurs. Endorses loss of appetite. She denies associated body aches, dysuria, hematuria, urinary frequency, or diarrhea. Initial VS at presentation: 97.8? F, HR 81, R 20, 107/73, and 98% on RA. ED workup showed: No leukocytosis, no anemia, no significant electrolyte derangements, total bilirubin 1.5 and AST 99/ALT T 69, UA showed possible infection versus contamination. HCG negative. CT of the abdomen/pelvis showed uterus/ovaries are markedly heterogeneous with a small amount of surrounding fluid and fat stranding, he no CT evidence of acute appendicitis, moderate amount of sludge in the gallbladder and mild central intrahepatic biliary ductal dilation. White upper quadrant ultrasound showed gallstones and sludge in the gallbladder with a positive sonographic Meek sign with no gallbladder wall thickening. Pelvic/transvaginal ultrasound showed a Caesarean section scar along the anterior lower uterine segment in the 3.1 cm likely fibroid at the right-sided uterine fundus. Review of Systems Review of Systems: All systems reviewed & are unremarkable except as noted in HPI and below [facility] Past Medical History Medical History Fibroid, uterine Surgical History Surgical History History of section Family History Family History Grandparent Diabetes mellitus Grandparent Diabetes mellitus Social History Social History Smoking status: Never smoker Alcohol intake: current Drinks per week: 1 Substance use: never Lack of Transportation: No Lack of Food: Never True Current Housing: I Have Housing Concerned About Future Housing: No Difficulty Paying Gas/Electric Bills: No Difficulty Paying for Meds: No Currently Unemployed: YES Education: High School Diploma/GED Difficulty w/ Childcare or Family Care: No Spiritual care concerns: No Meds Home Medications and Allergies Home Medications ?Medication ?Instructions ?Recorded ?Confirmed ?Type acetaminophen 500 mg capsule 500 mg PO Q6H PRN pain #14 caps 08/03/23 03/24/25 Rx norethindrone 1 mg-ethinyl 1 tablet PO HS 03/24/25 03/24/25 History estradiol 20 mcg (21)-iron 75 mg (7) tablet (Gume Fe 09/01 ()) Allergies Allergy/AdvReac Type Severity Reaction Status Date / Time No Known Allergies Allergy Verified 03/24/25 17:50 Vital Signs Vital Signs - 24 hr 03/24/25 10:50 03/24/25 10:56 03/24/25 11:32 Temperature 97.8 F Pulse Rate 81 74 77 Respiratory Rate 20 22 H 12 Blood Pressure 107/73 107/73 119/77 Pulse Oximetry 98 100 100 Oxygen Delivery Room Air 03/24/25 13:40 03/24/25 14:47 03/24/25 16:19 Temperature 98.2 F Pulse Rate 68 64 64 Respiratory Rate 18 18 17 Blood Pressure 107/71 105/71 111/66 Pulse Oximetry 100 100 100 Oxygen Delivery 03/24/25 17:04 Temperature Pulse Rate 68 Respiratory Rate 13 Blood Pressure 109/64 Pulse Oximetry 100 Oxygen Delivery Exam Const: General: comfortable and no acute distress Other: Afro-German, female, nontoxic appearance HENMT: Face/Nose/Sinus: Normal nares present Mouth: Yes moist mucous membranes Eyes: General: appearance normal, both eyes and all related structures Sclera: sclerae normal Pupils: Equal, round and reactive pupils present EOM: EOMs intact bilaterally Resp: Effort & Inspection: normal respiratory effort Auscultation: clear to auscultation bilaterally Cardio: Rate: regular rate Rhythm: regular rhythm Other: S1-S2 present without murmur, rub, ectopy GI: Other: Tenderness in the right lower quadrant. Abdomen otherwise soft, nondistended, nontender and normoactive bowel sounds in all quadrants. Skin: General skin exam: normal color and no rashes or lesions noted Wounds: no wounds Neuro: Speech: normal speech Motor exam (neuro): 5/5 motor strength present throughout Sensory Exam: normal sensation Other: A&O x4 Extrem: General: normal to inspection Psych: Mental Status: mental status grossly normal Affect: normal affect Other: Good insight and judgment, pleasant H&P: Results Labs Labs: Short CBC 03/24/25 Range/Units 10:59 WBC 8.0 (4.5-10.0) K/mm3 Hgb 12.3 (12.0-15.0) g/dL Hct 37.2 (37.0-47.0) % Plt Count 266 (150-375) k/mm3 BMP 03/24/25 10:59 Sodium 139 Potassium 3.6 Chloride 104 Carbon Dioxide 25 BUN 8 Creatinine 0.85 Glucose 95 Calcium 9.1 Liver Function 03/24/25 Range/Units 10:59 Total Bilirubin 1.5 H (0.2-1.3) mg/dL AST 99 H (14-36) U/L ALT 69 H (6-35) U/L Alkaline Phosphatase 81 (38-126) U/L Albumin 4.3 (3.5-5.1) g/dL Urine 03/24/25 Range/Units 10:59 Urine Color Dark yellow (Yellow) Urine Appearance Clear (Clear) Urine pH 6.5 (5.0-9.0) Ur Specific [place] 1.036 H (1.001-1.035) Urine Protein 1+ H (Negative) mg/dL Urine Glucose (UA) Negative (Negative) mg/dL Assessment and Plan Assessment and plan (1) Biliary colic: Code(s): K80.50 - Calculus of bile duct without cholangitis or cholecystitis without obstruction Status: Acute Assessment and Plan: - CT abd/pelvis: 1. Uterus and ovaries are markedly heterogeneous with a small amount of surrounding fluid and fat stranding. Findings are nonspecific. An infectious process is possible. Other etiologies are possible. A pelvic ultrasound is recommended. 2. No CT evidence for acute appendicitis. 3. Moderate amount of sludge in the gallbladder. Mild central intrahepatic biliary ductal dilatation. An ultrasound of the gallbladder is suggested. - RUQ US: There are gallstones and sludge in the gallbladder. There is a sonographic Meek's sign. The findings are concerning for acute cholecystitis. However, there is no gallbladder wall thickening. Consider a HIDA scan for further evaluation. - General Surgery consulted -> recommend MRCP, dependent on results may need laparoscopic cholecystectomy - clear liquid diet -> NPO at midnight - IV fluids - analgesics prn (2) Transaminitis: Code(s): R74.01 - Elevation of levels of liver transaminase levels Status: Acute Assessment and Plan: - total bilirubin 1.5, AST 99, ALT 69 - high suspicion for mild transaminitis secondary to gallstones. MRCP to be completed tomorrow on 03/25. Further plan of care depending on findings. - trend Plan UA equivocal for infection versus contamination. Urine culture pending. Follow. Denies any current urinary symptoms. Diet: Clear liquid -> NPO midnight GI Prophylaxis: N/a DVT Prophylaxis: SCDs IV fluids: 1L -> 125 mL/hour Lines/Tubes: Peripheral IV Code Status: Full code Quality VTE Prophylaxis VTE prophylaxis: mechanical ordered Hospitalist MIPS Advance Care Plan I have confirmed that the patient's Advanced Care Plan is present, code status is documented, or surrogate decision maker is listed in patient medical record.: Yes Medication Reconciliation I have utilized all available resources to obtain, update and review the patients current medications (includes all prescriptions, OTC, herbals, cannabis, and nutritional supplements).: Yes
[2025-03-24] MEDS: MORPHINE SULFATE (*CRX) 2 MG/ML INJ IV PUSH (19:46)
[2025-03-25] VITALS (13 sets, daily range): BP systolic 104–131; BP diastolic 47–78; PULSE 60–85; RESP 11–19; TEMP 36.1–37.1; O2SAT 94–100
[2025-03-25] MEDS: MORPHINE SULFATE (*CRX) 2 MG/ML INJ IV PUSH ×2 (03:05→10:59)
[2025-03-25 06:00] LABS: Hematocrit 33.0 % (37.0-47.0); Hemoglobin 10.4 g/dL (12.0-15.0); Mean Corpuscular HGB Conc 31.5 g/dl (32-36); Mean Corpuscular Hemoglobin 26.5 pg (26-34); Mean Corpuscular Volume 84.0 fl (80-100); Platelet Count Result 202 k/mm3 (150-375); Red Blood Count 3.93 M/mm3 (4.2-5.4); White Blood Count 5.2 K/mm3 (4.5-10.0)
[2025-03-25 06:25] LABS: Alanine Aminotransferase 46 U/L (6-35); Albumin Level 3.2 g/dL (3.5-5.1); Alkaline Phosphatase 70 U/L (38-126); Anion Gap 7 mmol/L (4-12); Aspartate Amino Transferase 62 U/L (14-36); Bilirubin,Total 1.3 mg/dL (0.2-1.3); Blood Urea Nitrogen 8 mg/dL (7-17); Calcium 8.1 mg/dL (8.4-10.2); Carbon Dioxide 21 mmol/L (22-30); Chloride 109 mmol/L (98-107); Estimated CRCL calculation 84 ml/min; Estimated Glomerular Filt Rate > 60; Glucose 81 mg/dL (65-110); Potassium 3.7 mmol/L (3.4-5.0); Sodium 137 mmol/L (137-145); Total Protein 6.0 g/dL (6.3-8.2)
[2025-03-25] MEDS: SODIUM CHLORIDE 0.9% IV 1,000 ML 125 ML IV CONT (06:31)
--- NOTE | 2025-03-25 08:15 | P.PNIM_ITS ---
Progress Note: A&P Assessment and Plan (1) Biliary colic: Code(s): K80.50 - Calculus of bile duct without cholangitis or cholecystitis without obstruction Status: Acute Assessment and Plan: * CT abd/pelvis: * Uterus and ovaries are markedly heterogeneous with a small amount of surrounding fluid and fat stranding. Findings are nonspecific. An infectious process is possible. Other etiologies are possible. A pelvic ultrasound is recommended. * No CT evidence for acute appendicitis. * Moderate amount of sludge in the gallbladder. Mild central intrahepatic biliary ductal dilatation. An ultrasound of the gallbladder is suggested. * RUQ US: There are gallstones and sludge in the gallbladder. There is a sonographic Meek's sign. The findings are concerning for acute cholecystitis. However, there is no gallbladder wall thickening. Consider a HIDA scan for further evaluation. * General Surgery consulted -> recommend MRCP, dependent on results may need laparoscopic cholecystectomy * clear liquid diet -> NPO at midnight * IV fluids * Analgesics prn (2) Transaminitis: Code(s): R74.01 - Elevation of levels of liver transaminase levels Status: Acute Assessment and Plan: * total bilirubin 1.5, AST 99, ALT 69 * high suspicion for mild transaminitis secondary to gallstones. MRCP to be completed tomorrow on 03/25. Further plan of care depending on findings. * trend * 03/25: AST/ALT 62/46, down from yesterday Plan UA equivocal for infection versus contamination. Urine culture pending. Follow. Denies any current urinary symptoms. Diet: Clear liquid -> NPO midnight GI Prophylaxis: N/a DVT Prophylaxis: SCDs IV fluids: 1L -> 125 mL/hour Lines/Tubes: Peripheral IV Code Status: Full code Subjective Date/time seen: 03/25/25 08:15 Interval history: 20 y/o F with PMH of presents here with abdominal pain. The patient presents here from home for further evaluation of abdominal pain. She reports onset of right sided abdominal pain starting around February 26. 03/25/2025 Patient sitting in bed time at time of examination. Denies any pain complaints at this time. Denies any nausea/vomiting this morning. Seen by General surgery, plan for MRCP, possible lap shilpi. Review of Systems Review of Systems: All systems reviewed & are unremarkable except as noted in HPI and below Exam Narrative: RLQ pain. otherwise benign. Const: General: comfortable and no acute distress Other: Afro-Prydeinig, female, nontoxic appearance HENMT: Face/Nose/Sinus: Normal nares present Mouth: Yes moist mucous membranes Eyes: General: appearance normal, both eyes and all related structures Sclera: sclerae normal Pupils: Equal, round and reactive pupils present EOM: EOMs intact bilaterally Resp: Effort & Inspection: normal respiratory effort Auscultation: clear to auscultation bilaterally Cardio: Rate: regular rate Rhythm: regular rhythm Other: S1-S2 present without murmur, rub, ectopy GI: Other: Tenderness in the right lower quadrant. Abdomen otherwise soft, nondistended, nontender and normoactive bowel sounds in all quadrants. Skin: General skin exam: normal color and no rashes or lesions noted Wounds: no wounds Neuro: Cranial nerves: Yes Equal, round and reactive pupils present Speech: normal speech Motor exam (neuro): 5/5 motor strength present throughout Sensory Exam: normal sensation Other: A&O x4 Extrem: General: normal to inspection Psych: Mental Status: mental status grossly normal Affect: normal affect Other: Good insight and judgment, pleasant Objective Data Vital Signs Vital Signs: Vital Signs - 24 hr 03/24/25 10:50 03/24/25 10:56 03/24/25 11:32 Temperature 97.8 F Pulse Rate 81 74 77 Respiratory Rate 20 22 H 12 Blood Pressure 107/73 107/73 119/77 Pulse Oximetry 98 100 100 Oxygen Delivery Room Air 03/24/25 13:40 03/24/25 14:47 03/24/25 16:19 Temperature 98.2 F Pulse Rate 68 64 64 Respiratory Rate 18 18 17 Blood Pressure 107/71 105/71 111/66 Pulse Oximetry 100 100 100 Oxygen Delivery 03/24/25 17:04 03/24/25 19:46 03/24/25 20:00 Temperature 98.2 F Pulse Rate 68 63 63 Respiratory Rate 13 16 16 Blood Pressure 109/64 112/65 Pulse Oximetry 100 99 99 Oxygen Delivery Room Air 03/25/25 04:00 Temperature 98.5 F Pulse Rate 80 Respiratory Rate 17 Blood Pressure 104/47 L Pulse Oximetry 99 Oxygen Delivery Intake/Output Intake/Output: Intake & Output 03/22/25 03/23/25 03/24/25 03/25/25 23:59 23:59 23:59 23:59 Intake Total 2019.8 906.3 Balance 2019.8 906.3 Meds/Results Medications: Active Medications Generic Name Dose Route Start Last Admin Trade Name Freq PRN Reason Stop Dose Admin Acetaminophen 650 mg 03/24/25 18:29 Acetaminophen 325 Mg Tablet PO Q6H PRN Mild Pain (1-3) or Fever Sodium Chloride 1,000 mls @ 125 mls/hr 03/24/25 16:05 03/25/25 06:31 Normal Saline Iv IV CONT 125 mls/hr .Q8H FRANCO Administration Miscellaneous Information 0 each 03/24/25 00:01 Norethindrone-E. Nonform If Pt Can Bring From Home Send To Pharmacy For Verification Once XX 04/23/25 00:00 [facility] Morphine Sulfate 2 mg 03/24/25 17:32 03/25/25 03:05 Morphine Sulfate (*Crx) 2 Mg/Ml Inj IV PUSH 2 mg Q2H PRN Administration Pain Rated 4-6 Morphine Sulfate 4 mg 03/24/25 17:32 Morphine Sulfate (*Crx) 4 Mg/Ml Inj IV PUSH Q2H PRN Pain Rated 7-10 Non-Formulary Medication 1 tablet 03/24/25 21:00 Norethindrone-E.Estradiol-Iron [Gume Fe 09/01 ()] PO 04/23/25 20:59 [facility] Radiology Results: ITS Impressions Abdomen/Pelvis CT 03/24/25 11:59 IMPRESSION: 1. Uterus and ovaries are markedly heterogeneous with a small amount of surrounding fluid and fat stranding. Findings are nonspecific. An infectious process is possible. Other etiologies are possible. A pelvic ultrasound is recommended. 2. No CT evidence for acute appendicitis. 3. Moderate amount of sludge in the gallbladder. Mild central intrahepatic bili edilson ductal dilatation. An ultrasound of the gallbladder is suggested. Upper Quadrant Ultrasound 03/24/25 13:54 IMPRESSION: 1: There are gallstones and sludge in the gallbladder. There is a sonographic Meek's sign. The findings are concerning for acute cholecystitis. However, there is no gallbladder wall thickening. Consider a HIDA scan for further evaluation. Pelvic/Transvag US 03/24/25 13:57 IMPRESSION: 1. Severe in section scar along the anterior lower uterine segment and 3.1 cm likely fibroid at the right-sided the uterine fundus. Labs Labs: Laboratory Results - last 24 hr 03/24/25 03/24/25 03/25/25 10:58 10:59 05:44 WBC 8.0 5.2 RBC 4.63 3.93 L Hgb 12.3 10.4 L Hct 37.2 33.0 L MCV 80.3 84.0 MCH 26.6 26.5 MCHC 33.1 31.5 L RDW 13.2 13.3 Plt Count 266 202 MPV 8.5 8.7 Immature Gran % (Auto) 0.1 Neut % (Auto) 70.5 Lymph % (Auto) 20.4 Ralls % (Auto) 8.3 Eos % (Auto) 0.3 Baso % (Auto) 0.4 Lymph # (Auto) 1.63 [place]alls # (Auto) 0.7 H Eos # (Auto) 0.0 Baso # (Auto) 0.0 Abs Immat Gran (auto) 0.01 Absolute Neuts (auto) 5.6 Absolute Nucleated RBC 0.000 Nucleated RBC % 0.0 Sodium 139 137 Potassium 3.6 3.7 Chloride 104 109 H Carbon Dioxide 25 21 L Anion Gap 10 7 BUN 8 8 Creatinine 0.85 0.82 Estim Creat Clear Calc 78 84 Estimated GFR > 60 > 60 Glucose 95 81 Calcium 9.1 8.1 L Total Bilirubin 1.5 H 1.3 AST 99 H 62 H ALT 69 H 46 H Alkaline Phosphatase 81 70 Total Protein 7.8 6.0 L Albumin 4.3 3.2 L Lipase 143 Urine Color Dark yellow Urine Appearance Clear Urine pH 6.5 Ur Specific [place] 1.036 H Urine Protein 1+ H Urine Glucose (UA) Negative Urine Ketones Trace H Ur Blood (Man) Negative Urine Nitrate Positive H Urine Bilirubin 2+ H Urine Urobilinogen 1.0 Leukocyte Esterase Rfl Trace H Urine RBC 0-2 Urine WBC 0-5 Ur Squamous Epith Cells Many H Urine Bacteria 2+ H Urine Casts 0-2 POC Urine HCG, Qual Negative Quality VTE Prophylaxis VTE prophylaxis: mechanical ordered
--- NOTE | 2025-03-25 15:27 | PM.PNGS ---
Progress Note: A&P Assessment and Plan (1) Acute calculous cholecystitis: Code(s): K80.00 - Calculus of gallbladder with acute cholecystitis without obstruction Status: Acute Assessment and Plan: Patient still with symptoms consistent with acute cholecystitis. Liver enzymes slightly improved. I have recommended proceeding with laparoscopic cholecystectomy with IOC, poss open. Discussed procedure, risks, benefits and alternatives. Questions answered. (2) Transaminitis: Code(s): R74.01 - Elevation of levels of liver transaminase levels Status: Acute Subjective Subjective Date/Time Seen: 03/25/25 15:27 Interval history: Patient still having some pain. Liver enzymes slightly improved. Unable to get MRCP this morning. Exam GI: Inspection: non-distended GI Palp: Yes Soft to palpation and Yes Tenderness to palpation present (GI) (epigastric) Objective Data Vital Signs Vital Signs: Vital Signs - 24 hr 03/24/25 16:19 03/24/25 17:04 03/24/25 19:46 Temperature 98.2 F Pulse Rate 64 68 63 Respiratory Rate 17 13 16 Blood Pressure 111/66 109/64 Pulse Oximetry 100 100 99 Oxygen Delivery Room Air 03/24/25 20:00 03/25/25 04:00 03/25/25 08:08 Temperature 98.2 F 98.5 F Pulse Rate 63 80 Respiratory Rate 16 17 Blood Pressure 112/65 104/47 L Pulse Oximetry 99 99 Oxygen Delivery Room Air 03/25/25 10:09 03/25/25 13:31 Temperature 98.4 F 98.8 F Pulse Rate 64 60 Respiratory Rate 18 16 Blood Pressure 111/68 116/67 Pulse Oximetry 100 100 Oxygen Delivery Intake/Output Intake/Output: Intake & Output 03/22/25 03/23/25 03/24/25 03/25/25 23:59 23:59 23:59 23:59 Intake Total 2019.8 906.3 Balance 2019.8 906.3 Meds/Results Medications: Active Medications Generic Name Dose Route Start Last Admin Trade Name Freq PRN Reason Stop Dose Admin Acetaminophen 650 mg 03/24/25 18:29 Acetaminophen 325 Mg Tablet PO Q6H PRN Mild Pain (1-3) or Fever Sodium Chloride 1,000 mls @ 125 mls/hr 03/24/25 16:05 03/25/25 06:31 Normal Saline Iv IV CONT 125 mls/hr .Q8H [facility] Administration Miscellaneous Information 0 each 03/24/25 00:01 Norethindrone-E. Nonform If Pt Can Bring From Home Send To Pharmacy For Verification Once XX 04/23/25 00:00 CLARIFY [facility] Morphine Sulfate 2 mg 03/24/25 17:32 03/25/25 10:59 Morphine Sulfate (*Crx) 2 Mg/Ml Inj IV PUSH 2 mg Q2H PRN Administration Pain Rated 4-6 Morphine Sulfate 4 mg 03/24/25 17:32 Morphine Sulfate (*Crx) 4 Mg/Ml Inj IV PUSH Q2H PRN Pain Rated 7-10 Non-Formulary Medication 1 tablet 03/24/25 21:00 Norethindrone-E.Estradiol-Iron [Gume Fe 09/01 ()] PO 04/23/25 20:59 [facility] Radiology Results: ITS Impressions Abdomen/Pelvis CT 03/24/25 11:59 IMPRESSION: 1. Uterus and ovaries are markedly heterogeneous with a small amount of surrounding fluid and fat stranding. Findings are nonspecific. An infectious process is possible. Other etiologies are possible. A pelvic ultrasound is recommended. 2. No CT evidence for acute appendicitis. 3. Moderate amount of sludge in the gallbladder. Mild central intrahepatic biliary ductal dilatation. An ultrasound of the gallbladder is suggested. Upper Quadrant Ultrasound 03/24/25 13:54 IMPRESSION: 1: There are gallstones and sludge in the gallbladder. There is a sonographic Meek's sign. The findings are concerning for acute cholecystitis. However, there is no gallbladder wall thickening. Consider a HIDA scan for further evaluation. Pelvic/Transvag US 03/24/25 13:57 IMPRESSION: 1. Severe in section scar along the anterior lower uterine segment and 3.1 cm likely fibroid at the right-sided the uterine fundus. Labs Labs: Laboratory Results - last 24 hr 03/25/25 05:44 WBC 5.2 RBC 3.93 L Hgb 10.4 L Hct 33.0 L MCV 84.0 MCH 26.5 MCHC 31.5 L RDW 13.3 Plt Count 202 MPV 8.7 Sodium 137 Potassium 3.7 Chloride 109 H Carbon Dioxide 21 L Anion Gap 7 BUN 8 Creatinine 0.82 Estim Creat Clear Calc 84 Estimated GFR > 60 Glucose 81 Calcium 8.1 L Total Bilirubin 1.3 AST 62 H ALT 46 H Alkaline Phosphatase 70 Total Protein 6.0 L Albumin 3.2 L
--- NOTE | 2025-03-25 15:41 | WPDHPUPDATE1 ---
History and Physical Update Update Date/Time: 03/25/25 15:41 History and Physical has been reviewed, including an updated exam of the patient. There are NO changes in the patient's condition. Risks, benefits, and alternatives have been discussed and questions answered. Patient agrees to proceed with procedure.
--- NOTE | 2025-03-25 15:53 | PC.NURSE ---
Patient to OR per wheelchair.
[2025-03-25] MEDS: ACETAMINOPHEN 500 MG TABLET 1000 MG PO (16:30)
[2025-03-25] MEDS: KETOROLAC 15 MG/ML VIAL (*BKC) IV PUSH (16:30)
--- NOTE | 2025-03-25 17:10 | P.PNAN_ITS ---
Anes - Initial Pre Proc Eval Procedure: Operation Date: 03/25/25 16:00 Proposed Procedures p Laparoscopic Cholecystectomy with Intraoperative Cholangiograms, Possible Open - Jaya Miller DO Date/Time: 03/25/25 17:10 Surgeon: Facundo Jurado MD Pre Op Diagnosis: biliary colic Patient Data Age: 20 Gender: F Height: 1.52 m Weight: 73.5 kg Last Vital Signs Temp 36.8 C 03/25/25 16:03 Pulse 67 03/25/25 16:03 Resp 16 03/25/25 16:03 BP 122/74 03/25/25 16:03 Pulse Ox 100 03/25/25 16:03 O2 Del Method Room Air 03/25/25 16:03 Allergies Allergy/AdvReac Type Severity Reaction Status Date / Time No Known Allergies Allergy Verified 03/24/25 17:50 Home Medications ?Medication ?Instructions ?Recorded ?Confirmed ?Type acetaminophen 500 mg capsule 500 mg PO Q6H PRN pain #14 caps 08/03/23 03/24/25 Rx norethindrone 1 mg-ethinyl 1 tablet PO HS 03/24/25 03/24/25 History estradiol 20 mcg (21)-iron 75 mg (7) tablet (Gume Fe 09/01 (28)) Laboratory Tests 03/25/25 05:44 WBC 5.2 K/mm3 (4.5-10.0) RBC 3.93 L M/mm3 (4.2-5.4) Hgb 10.4 L g/dL (12.0-15.0) Hct 33.0 L % (37.0-47.0) MCV 84.0 fl (80-100) MCH 26.5 pg (26-34) MCHC 31.5 L g/dl (32-36) RDW 13.3 % (11.5-14.5) Plt Count 202 k/mm3 (150-375) MPV 8.7 fl (7.4-10.4) Sodium 137 mmol/L (137-145) Potassium 3.7 mmol/L (3.4-5.0) Chloride 109 H mmol/L (98-107) Carbon Dioxide 21 L mmol/L (22-30) Anion Gap 7 mmol/L (4-12) BUN 8 mg/dL (7-17) Creatinine 0.82 mg/dL (0.7-1.0) Estim Creat Clear Calc 84 ml/min Estimated GFR > 60 (59 - ) Glucose 81 mg/dL (65-110) Calcium 8.1 L mg/dL (8.4-10.2) Total Bilirubin 1.3 mg/dL (0.2-1.3) AST 62 H U/L (14-36) ALT 46 H U/L (6-35) Alkaline Phosphatase 70 U/L (38-126) Total Protein 6.0 L g/dL (6.3-8.2) Albumin 3.2 L g/dL (3.5-5.1) Patient hx anesthesia problems: none Family hx anesthesia problems: none Results Review: All pre-operative results and documents have been reviewed as part of the pre- operative evaluation. [facility] Past Medical History Medical History Fibroid, uterine Surgical History Surgical History History of section Family History Family History Grandparent Diabetes mellitus Grandparent Diabetes mellitus Social History Social History Smoking status: Never smoker Alcohol intake: current Drinks per week: 1 Substance use: never Lack of Transportation: No Lack of Food: Never True Current Housing: I Have Housing Concerned About Future Housing: No Difficulty Paying Gas/Electric Bills: No Difficulty Paying for Meds: No Currently Unemployed: YES Education: High School Diploma/GED Difficulty w/ Childcare or Family Care: No Spiritual care concerns: No Anes - Eval Final PreProcedure Day of Procedure 03/25/25 17:10 Patient weight: overweight Heart: regular rate and rhythm Lungs: clear to auscultation Airway: Mallampati scale class III Neurological: alert and oriented Last oral intake: >/= 8 hours ASA classification: II Emergent: no Anesthetic plan: proceed Anesthesia type and monitoring: general ETT and standard monitoring Results Review: All pre-operative results and documents have been reviewed as part of the pre- operative evaluation. Informed Consent: The patient's anesthetic plan and its attendant risks and benefits were discussed with the patient/family/POA. Questions were solicited and answers provided to the satisfaction of the patient/family/POA.
[2025-03-25] MEDS: ceFAZolin 2 GM in SODIUM CHLORIDE 0.9% IV 50 ML 100 ML IVPB (17:13)
[2025-03-25] MEDS: BUPIVACAINE/EPINEPHRINE 0.5% 50 ML VIAL 30 ML INFILTRATE (17:39)
--- NOTE | 2025-03-25 17:51 | S_PTH ---
PATIENT: Kenny Mancini LOC: [id number] U#:[id number] AGE/SX: 20/F ROOM: 346 RE03/24/[address]: Wesly Guerrero MD : 2005 BED: 01 DIS: 03/27/2025 SPEC #: [id number] RECD: 03/26/25 08:04 STATUS: CHASE REQ #: [id number] ENRICO: 03/25/25 17:[address]: Jaya Miller DEPT: [facility] Surgical RECD BY: Larisa Vora ENTERED: 03/26/25 08:05 SP TYPE: Surgical OTHR DR: Ap Mcnamara PAHeenaC MD Gallito Bishop MD UNKNOWN,DOCTOR Tissues: A - Gallbladder Procedures: Hematoxylin and Eosin Stain Gross and Microscopic Level 3
[2025-03-25] MEDS: LACTATED RINGERS 1,000 ML 30 ML IV CONT (18:08)
--- NOTE | 2025-03-25 18:11 | P.OP_ITS ---
Procedure Note - Detailed Date of Procedure 03/25/25 Pre-op Diagnosis Acute calculous cholecystitis, elevated liver enzymes Post-op Diagnosis Other (Acute calculous cholecystitis with choledocholithiasis) Procedure Performed Laparoscopic cholecystectomy with intraoperative cholangiogram Surgeon Jaya Miller, DO Anesthesia General and Local (0.5% bupivacaine) Indications This is a 20-year-old woman who presented to the emergency department on 03/24/2025 with right upper quadrant and epigastric abdominal pain that had been off and for the past 3 weeks. It had become more constant and severe 2 days ago. When she presented to the emergency department she was noted to have elevated liver enzymes and ultrasound showed evidence of cholelithiasis with positive sonographic Meek sign. She was admitted for further treatment. Discussions were made with the patient about treatment options and decision was made to proceed with laparoscopic cholecystectomy with intraoperative cholangiogram. Findings Laparoscopic cholecystectomy with intraoperative cholangiogram was performed. The patient's gallbladder appeared distended and slightly edematous. The gallbladder was aspirated with a laparoscopic aspirating needle to help decompress it in order to grasp and manipulate it. The cystic duct appeared slightly dilated and elongated. Intraoperative cholangiogram was obtained and there appeared to be an obstruction in the distal common bile duct and no contrast was seen passing into the duodenum. The images were sent to the radiologist for interpretation. The patient did have multiple stones within the neck of her gallbladder. No other intra-abdominal abnormalities were noted. The gallbladder was removed and sent to the lab for pathology. Description of Procedure Procedure as well as risks, benefits, and alternatives were discussed with patient. Written consent was obtained and placed in chart prior to procedure. The patient was brought back to surgical suite. Patient was placed in supine position on operating table. Time-out was done to confirm patient and procedure. Patient was then intubated by the anesthesia department. Abdomen was prepped and draped in sterile fashion using chlorhexidine prep. 0.5% bupivacaine with epinephrine was infiltrated at each site of incision. A 5 millimeter incision was made near the umbilicus, and a 5 millimeter Optiview trocar was advanced through the abdominal layers under direct visualization. Once inside the abdominal cavity, carbon dioxide was insufflated to create a pneumoperitoneum. The camera was inserted and the abdomen was inspected. No immediate abnormalities were identified. The patient was placed in reverse Trendelenburg position and rotated slightly to the left. An 11 millimeter incision was made in the subxiphoid region, and an 11 millimeter trocar was inserted under direct visualization. Two 5 millimeter incisions were made in the right upper quadrant, and two 5 millimeter trocars were inserted under direct visualization. The gallbladder was identified and grasped at the fundus and retracted superiorly. It was then grasped at the infundibulum retracted laterally. Careful dissection around the neck of the gallbladder was performed using blunt dissection with a [place] grasper and hook electrocautery. The cystic duct was identified, and a window was created behind it. The cystic artery was also identified and a window was created behind it. The critical view of safety was identified, visualizing the cystic duct running directly into the neck of the gallbladder, and the cystic artery running directly into the wall of the gallbladder. A 5 millimeter clip canary breeder was then used to place 2 clips proximally and 1 clip distally on the cystic artery. It was then transected using endoscopic scissors. The Joya clamp was then placed across the neck of the gallbladder and the Joya cholangiocatheter was advanced into the distal neck of the gallbladder. The catheter aspirated and flushed with saline with ease. Patient was then flattened out in bed and fluoroscopy was used to obtain a cholangiogram using Omnipaque contrast. The images were sent to the radiologist for interpretation. The patient was placed back in reverse Trendelenburg position. A 5 mm Endoclip canary breeder was used to place 2 clips proximally 1 clip distally on the cystic duct. It was then transected using endoscopic scissors. Once safely away from the soren hepatitis, the gallbladder was dissected free from the liver bed using hook electrocautery. Hemostasis was achieved along the way. The gallbladder was removed completely and then removed through the subxiphoid port. The liver bed was then inspected. Hemostasis appeared adequate, and our clips appeared secure. The area was gently irrigated with sterile saline. No other abnormalities were seen. The patient was flattened out in bed, and 1 final inspection was made around the abdominal cavity. The subxiphoid port was removed, and a Jason Emrcy cone was used to approximate the fascia with an 0-Vicryl simple interrupted suture. The remaining ports were then removed under direct visualization, the camera was removed, and the pneumoperitoneum was released. The skin of the incisions was approximated using 4-0 Monocryl subcuticular sutures. Exofin glue was applied on top. The patient was then awakened from anesthesia, extubated, and transferred to recovery. Estimated Blood Loss 5 Pathology Yes (Gallbladder) Complications No immediate complications Condition Stable Disposition Floor [facility] Billing Surgery - Charge Forward: Surgery Billing
[2025-03-25] MEDS: fentaNYL CITRATE INJ (*CRX) 100 MCG/2 ML VIAL 25 MCG IV PUSH ×4 (18:25→18:35)
[2025-03-25] MEDS: ONDANSETRON INJ 4 MG/2 ML VIAL IV PUSH (18:30)
[2025-03-25] MEDS: LACTATED RINGERS 1,000 ML 100 ML IV CONT (19:00)
[2025-03-25] MEDS: HYDROcodone/acetaminophen (*CRX) 7.5-325 MG TABLET 1 TAB PO (19:36)
[2025-03-26] VITALS (13 sets, daily range): BP systolic 114–137; BP diastolic 63–91; PULSE 58–95; RESP 16–20; TEMP 36.4–36.9; O2SAT 98–100
[2025-03-26] MEDS: HYDROcodone/acetaminophen (*CRX) 7.5-325 MG TABLET 1 TAB PO (01:52)
[2025-03-26 05:52] LABS: Hematocrit 35.0 % (37.0-47.0); Hemoglobin 11.2 g/dL (12.0-15.0); Mean Corpuscular HGB Conc 32.0 g/dl (32-36); Mean Corpuscular Hemoglobin 26.2 pg (26-34); Mean Corpuscular Volume 82.0 fl (80-100); Platelet Count Result 240 k/mm3 (150-375); Red Blood Count 4.27 M/mm3 (4.2-5.4); White Blood Count 7.1 K/mm3 (4.5-10.0)
[2025-03-26 06:15] LABS: Alanine Aminotransferase 57 U/L (6-35); Albumin Level 3.7 g/dL (3.5-5.1); Alkaline Phosphatase 92 U/L (38-126); Anion Gap 7 mmol/L (4-12); Aspartate Amino Transferase 80 U/L (14-36); Bilirubin,Total 0.8 mg/dL (0.2-1.3); Blood Urea Nitrogen 5 mg/dL (7-17); Calcium 8.8 mg/dL (8.4-10.2); Carbon Dioxide 22 mmol/L (22-30); Chloride 106 mmol/L (98-107); Estimated CRCL calculation 89 ml/min; Estimated Glomerular Filt Rate > 60; Glucose 99 mg/dL (65-110); Potassium 4.3 mmol/L (3.4-5.0); Sodium 135 mmol/L (137-145); Total Protein 6.6 g/dL (6.3-8.2)
[2025-03-26] MEDS: HYDROcodone/acetaminophen (*CRX) 5-325 MG TABLET 1 TAB PO (06:21)
[2025-03-26] MEDS: LACTATED RINGERS 1,000 ML 100 ML IV CONT (06:40)
--- NOTE | 2025-03-26 07:52 | P.CONGI_ITS ---
Assessment and Plan Assessment and plan (1) Acute calculous cholecystitis: Code(s): K80.00 - Calculus of gallbladder with acute cholecystitis without obstruction Status: Acute (2) Choledocholithiasis: Code(s): K80.50 - Calculus of bile duct without cholangitis or cholecystitis without obstruction Status: Acute (3) Elevated LFTs: Code(s): R79.89 - Other specified abnormal findings of blood chemistry Status: Acute (4) Normocytic anemia: Code(s): D64.9 - Anemia, unspecified Status: Acute (5) Right sided abdominal pain: Code(s): R10.9 - Unspecified abdominal pain Status: Acute Plan 1. Choledocholithiasis/elevated LFT's/right sided abdominal pain: LFT's trending down but still elevated showing Total Bili 1.5-->0.8, AST 99-->80, ALT 69-->57 and Alk Phos 92. Lipase normal on admission @ 143. CT revealed moderate amount of sludge in the gallbladder. Mild central intrahepatic biliary ductal dilatation and ultrasound showed gallstones and sludge in the gallbladder. There is a sonographic Meek's sign. The findings are concerning for acute cholecystitis. Patient S/P lap shilpi performed by Dr. Miller 03/24/2025 and intraoperative cholangiogram was obtained and there appeared to be an obstruction in the distal common bile duct and no contrast was seen passing into the duodenum. Somewhat long appearing cystic duct. Mild common hepatic and common bile duct dilation. The distal duct tapers, with no filling distal filling defect or forward movement of contrast into the duodenum. Small filling defect in a right hepatic bile duct branch, presumably a gas bubble, although a small stone is not excluded. Patient states that prior to her admission she was having right-sided abdominal pain x3 weeks that have become more severe prior to admission. She is still having mild pain but states it is significantly improved since her CCX. She denies any further episodes of nausea or vomiting since the CCX. * ERCP today with Dr. Chong * Keep patient NPO * Further recommendations to follow ERCP 2. Anemia: Patient has never had an EGD or colonoscopy. H/H low but WNL on admission with Hgb 12, Hct 37. Labs today show Hgb 11, Hct 35, MCV 82 and platelets 240. Hx of mild anemia noted on labs back to 2022. Patient with Hx of heavy bleeding with menses and was placed on control to help decrease uterine bleeding. She denies any prior IV iron or blood transfusions and she is currently on no oral iron supplement. Patient states that her anemia is being followed by her director external communications. No signs of active GI bleeding. * Primary care team to continue monitoring Thank you very much for allowing me to share in the care of this very nice patient. This report may have been done utilizing a voice recognition system. Attempts have been made to correct errors. However, there may be uncorrected grammatical, spelling, and recognition errors present. GI Consult Note Consult date/time: 03/26/25 07:52 Reason for consult: Choledocholithiasis HPI: Kenny Mancini is a 20 year old female with PMSH of uterine fibroids and C- Section. She presented to the ER 03/24/2025 with complaints of abdominal pain and was admitted for biliary colic. GI has been consulted for choledocholithiasis. Patient had a laparoscopic cholecystectomy performed by Dr. Miller 03/24/2025. Intraoperative cholangiogram was obtained and there appeared to be an obstruction in the distal common bile duct and no contrast was seen passing into the duodenum. Patient states that prior to her admission with was having right sided abdominal pain x 3 weeks that have become significantly more severe prior to admission. She denies any further episodes of nausea vomiting since her cholecystectomy. She was having a decreased appetite prior to admission. She is still having right-sided abdominal pain but states that it is significantly less severe than prior to her cholecystectomy. She denies any bloating, odynophagia, dysphagia, reflux, regurgitation or early satiety. Before admission she was having regular daily bowel movements that were formed and non urgent. Denies diarrhea, constipation, hematochezia, or melena. She denies any NSAID, aspirin, or anticoagulant use. She is a nondrinker nonsmoker and denies marijuana use. Family history negative for CRC or IBD. ENDOSCOPY HISTORY: EGD: Patient has never had an EGD COLONOSCOPY: Patient has never had a colonoscopy LABS AND STOOL STUDIES: Labs 03/26/2025: Sodium 135, potassium 4.3, BUN 5, creatinine 0.77, GFR >60, calcium 8.8 WBC 7, Hgb 11, Hct 35, MCV 82, platelets 240 Total bilirubin 0.8, AST 80, ALT 57, Alkaline Phos 92, albumin 3.7 Labs 03/24/2025: WBC 5, Hgb 10, Hct 33, MCV 84, platelets 202 Sodium 139, potassium 3.6, BUN 8, creatinine 0.85, GFR >60, calcium 9.1 Total bilirubin 1.5, AST 99, ALT 69, Alkaline Phos 81, albumin 4.3, lipase 143 IMAGING: Intraoperative cholangiogram 03/24/2025: FINDINGS: A single image is available for review. Cine images were obtained but not saved or provided for reading. Catheter in the cystic duct. Somewhat long appearing cystic duct. Mild common hepatic and common bile duct dilation. The distal duct tapers, with no filling distal filling defect or forward movement of contrast into the duodenum. Small filling defect in a right hepatic bile duct branch, presumably a gas bubble, although a small stone is not excluded. IMPRESSION: Intraoperative angiogram during endoscopic cholecystectomy. Please refer to the operative note for complete procedural details. CT abd/pelvis w/contrast 03/24/2025: IMPRESSION: 1. Uterus and ovaries are markedly heterogeneous with a small amount of surrounding fluid and fat stranding. Findings are nonspecific. An infectious process is possible. Other etiologies are possible. A pelvic ultrasound is recommended. 2. No CT evidence for acute appendicitis. 3. Moderate amount of sludge in the gallbladder. Mild central intrahepatic biliary ductal dilatation. An ultrasound of the gallbladder is suggested. Abdominal Ultrasound 03/24/2025: 1: There are gallstones and sludge in the gallbladder. There is a sonographic Meek's sign. The findings are concerning for acute cholecystitis. However, there is no gallbladder wall thickening. Consider a HIDA scan for further evaluation. Review of Systems 2 Constitutional: Constitutional: Reports as per HPI ENT: Reports as per HPI Cardiovascular: Cardiovascular: Reports as per HPI, Denies chest pain and Denies dyspnea Respiratory: Respiratory: Denies cough and Denies dyspnea Gastrointestinal: Gastrointestinal: Reports as per HPI Musculoskeletal: Musculoskeletal: Reports as per HPI Integumentary/Breasts: Skin/Breast: Reports as per HPI Psychiatric: Psychiatric: Reports as per HPI Endocrine: Endocrine: Reports no additional endocrine complaints Hematologic/Lymphatic: Hematologic/Lymphatic: Reports no additional hematologic/lymphatic complaints [facility] Past Medical History Medical History Fibroid, uterine Surgical History Surgical History History of section Family History Family History Grandparent Diabetes mellitus Grandparent Diabetes mellitus Social History Social History Smoking status: Never smoker Alcohol intake: current Drinks per week: 1 Substance use: never Lack of Transportation: No Lack of Food: Never True Current Housing: I Have Housing Concerned About Future Housing: No Difficulty Paying Gas/Electric Bills: No Difficulty Paying for Meds: No Currently Unemployed: YES Education: High School Diploma/GED Difficulty w/ Childcare or Family Care: No Spiritual care concerns: No Meds Home Medications and Allergies Home Medications ?Medication ?Instructions ?Recorded ?Confirmed ?Type acetaminophen 500 mg capsule 500 mg PO Q6H PRN pain #14 caps 08/03/23 03/24/25 Rx norethindrone 1 mg-ethinyl 1 tablet PO HS 03/24/25 03/24/25 History estradiol 20 mcg (21)-iron 75 mg (7) tablet (Gume Fe 09/01 (28)) Allergies Allergy/AdvReac Type Severity Reaction Status Date / Time No Known Allergies Allergy Verified 03/24/25 17:50 Vital Signs Vital Signs - 24 hr 03/25/25 08:08 03/25/25 10:09 03/25/25 13:31 Temperature 98.4 F 98.8 F Pulse Rate 64 60 Respiratory Rate 18 16 Blood Pressure 111/68 116/67 Pulse Oximetry 100 100 Oxygen Delivery Room Air Oxygen Flow Rate Fraction of Inspired Oxygen 03/25/25 16:03 03/25/25 18:08 03/25/25 18:23 Temperature 98.2 F 97 F L Pulse Rate 67 82 83 Respiratory Rate 16 19 11 L Blood Pressure 122/74 107/64 131/77 Pulse Oximetry 100 99 97 Oxygen Delivery Room Air Simple Face Mask Room Air Oxygen Flow Rate 8 Fraction of Inspired Oxygen 03/25/25 18:38 03/25/25 18:53 03/25/25 19:07 Temperature 98.0 F Pulse Rate 85 68 64 Respiratory Rate 17 17 17 Blood Pressure 123/78 118/69 116/69 Pulse Oximetry 96 99 94 Oxygen Delivery Room Air Room Air Oxygen Flow Rate Fraction of Inspired Oxygen 03/25/25 19:39 03/25/25 20:39 03/25/25 21:18 Temperature 98.1 F 97.9 F 97.9 F Pulse Rate 74 72 72 Respiratory Rate 17 18 18 Blood Pressure 118/71 125/64 125/64 Pulse Oximetry 100 98 98 Oxygen Delivery Oxygen Flow Rate Fraction of Inspired Oxygen 03/25/25 21:50 03/26/25 00:34 03/26/25 04:39 Temperature 97.6 F 97.6 F Pulse Rate 72 59 L 58 L Respiratory Rate 18 17 16 Blood Pressure 125/67 116/70 Pulse Oximetry 98 99 99 Oxygen Delivery Room Air Oxygen Flow Rate Fraction of Inspired Oxygen 21 Exam 2 Const: General: cooperative, healthy appearing, comfortable, no acute distress and well developed Orientation/consciousness: oriented to person, oriented to place, oriented to time and patient oriented x3 HENMT: Head: normal to inspection, normocephalic and atraumatic Mouth: Yes Normal oral and palatal mucosa present and Yes moist mucous membranes Eyes: General: appearance normal, both eyes and all related structures C onjunctivae: conjunctivae normal Sclera: sclerae normal Pupils: Equal, round and reactive pupils present Neck: Neck: normal visual inspection Chest: Chest palpation & inspection: normal inspection of the chest Resp: Effort & Inspection: normal respiratory effort and able to speak in complete sentences Auscultation: clear to auscultation bilaterally Cardio: Jugular venous distension: no JVD Rate: regular rate Rhythm: r egular rhythm Heart sounds: S1 normal heart sound present and S2 normal heart sound present GI: GI Palp: Yes Soft to palpation, Yes Tenderness to palpation present (GI) (Mild postop tenderness), No Guarding due to palpation present (GI) and Yes No hepatosplenomegaly present Auscultation: normal bowel sounds Rectal Exam: deferred Skin: General skin exam: normal color and no rashes or lesions noted Neuro: General: oriented to person, oriented to place, oriented to time and patient oriented x3 Cranial nerves: Yes Equal, round and reactive pupils present Speech: normal speech Extrem: General: normal to inspection and no clubbing, cyanosis or edema Psych: Appearance: grossly normal and well kempt Affect: normal affect Results Labs 03/26/25 05:41 03/26/25 05:41 Labs: Short CBC 03/26/25 Range/Units 05:41 WBC 7.1 (4.5-10.0) K/mm3 Hgb 11.2 L (12.0-15.0) g/dL Hct 35.0 L (37.0-47.0) % Plt Count 240 (150-375) k/mm3 BMP 03/26/25 05:41 Sodium 135 L Potassium 4.3 Chloride 106 Carbon Dioxide 22 BUN 5 L Creatinine 0.77 Glucose 99 Calcium 8.8 Liver Function 03/26/25 Range/Units 05:41 Total Bilirubin 0.8 (0.2-1.3) mg/dL AST 80 H (14-36) U/L ALT 57 H (6-35) U/L Alkaline Phosphatase 92 (38-126) U/L Albumin 3.7 (3.5-5.1) g/dL
--- NOTE | 2025-03-26 09:19 | P.PNGS_ITS ---
Progress Note: A&P Assessment and Plan (1) Acute calculous cholecystitis: Code(s): K80.00 - Calculus of gallbladder with acute cholecystitis without obstruction Status: Acute Assessment and Plan: * IOC concerning for possible distal CBD stone. Radiologist review showed mild common hepatic and CBD dilation, and small filling defect in right hepatic bile duct branch, presumably a gas bubble. * GI was consulted and planning ERCP today (2) Transaminitis: Code(s): R74.01 - Elevation of levels of liver transaminase levels Status: Acute Assessment and Plan: * Total bilirubin normalized. See above. ERCP today Plan I have discussed the patient's case and plan of care with Dr. Miller. Subjective Subjective Date/Time Seen: 03/26/25 09:19 Post Op day: 1 (Laparoscopic cholecystectomy with IOC) Patient reports: no new complaints Interval history: Patient is thirsty and complains of a sore throat. She has some soreness at the incisions that is very mild. Otherwise, no complaints. Exam Const: General: comfortable and no acute distress GI: Inspection: no abdominal wall ecchymosis, non-distended and incision (dry and glue intact) GI Palp: Yes Soft to palpation Auscultation: normal bowel sounds Objective Data Vital Signs Vital Signs: Vital Signs - 24 hr 03/25/25 10:09 03/25/25 13:31 03/25/25 16:03 Temperature 98.4 F 98.8 F 98.2 F Pulse Rate 64 60 67 Respiratory Rate 18 16 16 Blood Pressure 111/68 116/67 122/74 Pulse Oximetry 100 100 100 Oxygen Delivery Room Air Oxygen Flow Rate Fraction of Inspired Oxygen 03/25/25 18:08 03/25/25 18:23 03/25/25 18:38 Temperature 97 F L Pulse Rate 82 83 85 Respiratory Rate 19 11 L 17 Blood Pressure 107/64 131/77 123/78 Pulse Oximetry 99 97 96 Oxygen Delivery Simple Face Mask Room Air Room Air Oxygen Flow Rate 8 Fraction of Inspired Oxygen 03/25/25 18:53 03/25/25 19:07 03/25/25 19:39 Temperature 98.0 F 98.1 F Pulse Rate 68 64 74 Respiratory Rate 17 17 17 Blood Pressure 118/69 116/69 118/71 Pulse Oximetry 99 94 100 Oxygen Delivery Room Air Oxygen Flow Rate Fraction of Inspired Oxygen 03/25/25 20:39 03/25/25 21:18 03/25/25 21:50 Temperature 97.9 F 97.9 F Pulse Rate 72 72 72 Respiratory Rate 18 18 18 Blood Pressure 125/64 125/64 Pulse Oximetry 98 98 98 Oxygen Delivery Room Air Oxygen Flow Rate Fraction of Inspired Oxygen 21 03/26/25 00:34 03/26/25 04:39 Temperature 97.6 F 97.6 F Pulse Rate 59 L 58 L Respiratory Rate 17 16 Blood Pressure 125/67 116/70 Pulse Oximetry 99 99 Oxygen Delivery Oxygen Flow Rate Fraction of Inspired Oxygen Intake/Output Intake/Output: Intake & Output 03/23/25 03/24/25 03/25/25 03/26/25 23:59 23:59 23:59 23:59 Intake Total 2019.8 2321.3 1000 Balance 2019.8 2321.3 1000 Meds/Results Medications: Active Medications Generic Name Dose Route Start Last Admin Trade Name Freq PRN Reason Stop Dose Admin Acetaminophen 500 mg 03/25/25 18:54 Acetaminophen 500 Mg Tablet PO Q6H PRN Pain Rated 1-3 Hydrocodone Bitart/Acetaminophen 1 tab 03/25/25 18:54 03/26/25 06:21 Hydrocodone/Acetaminophen (*Crx) 5-325 Mg Tablet PO 1 tab Q4H PRN Administration Pain Rated 4-6 Hydrocodone Bitart/Acetaminophen 1 tab 03/25/25 18:54 03/26/25 01:52 Hydrocodone/Acetaminophen (*Crx) 7.5-325 Mg Tablet PO 1 tab Q4H PRN Administration Pain Rated 7-10 Diphenhydramine HCl 25 mg 03/25/25 18:54 Diphenhydramine Hcl Inj 50 Mg/Ml Vial IV PUSH Q6H PRN Itching Lactated Ringer's 1,000 mls @ 100 mls/hr 03/25/25 18:54 03/26/25 07:29 Lr - Lactated Ringers Iv IV CONT 0 mls/hr .Q10H FRANCO Infusion Miscellaneous Information 0 each 03/24/25 00:01 Norethindrone-E. Nonform If Pt Can Bring From Home Send To Pharmacy For Verification Once XX 04/23/25 00:00 CLARIFY FRANCO Morphine Sulfate 2 mg 03/25/25 18:54 Morphine Sulfate (*Crx) 2 Mg/Ml Inj IV PUSH Q2H PRN Breakthrough Pain Rated 4-6 or NPO Morphine Sulfate 4 mg 03/25/25 18:54 Morphine Sulfate (*Crx) 4 Mg/Ml Inj IV PUSH Q2H PRN Breakthrough Pain Rated 7-10 or NPO Naloxone HCl 0.1 mg 03/25/25 18:54 Naloxone Hcl 0.4 Mg/Ml Vial IV PUSH Q2M PRN Opiate Reversal Non-Formulary Medication 1 tablet 03/24/25 21:00 Norethindrone-E.Estradiol-Iron [Gume Fe 09/01 (28)] PO 04/23/25 20:59 HS FRANCO Ondansetron HCl 4 mg 03/25/25 18:54 Ondansetron Inj 4 Mg/2 Ml Vial IV PUSH Q4H PRN Nausea And Vomiting Radiology Results: ITS Impressions Abdomen/Pelvis CT 03/24/25 11:59 IMPRESSION: 1. Uterus and ovaries are markedly heterogeneous with a small amount of surrounding fluid and fat stranding. Findings are nonspecific. An infectious process is possible. Other etiologies are possible. A pelvic ultrasound is recommended. 2. No CT evidence for acute appendicitis. 3. Moderate amount of sludge in the gallbladder. Mild central intrahepatic biliary ductal dilatation. An ultrasound of the gallbladder is suggested. Upper Quadrant Ultrasound 03/24/25 13:54 IMPRESSION: 1: There are gallstones and sludge in the gallbladder. There is a sonographic Meek's sign. The findings are concerning for acute cholecystitis. However, there is no gallbladder wall thickening. Consider a HIDA scan for further evaluation. Pelvic/Transvag US 03/24/25 13:57 IMPRESSION: 1. Severe in section scar along the anterior lower uterine segment and 3.1 cm likely fibroid at the right-sided the uterine fundus. Cholangiogram,Operative 03/25/25 18:38 IMPRESSION: Intraoperative angiogram during endoscopic cholecystectomy. Please refer to the operative note for complete procedural details. Labs Labs: Laboratory Results - last 24 hr 03/26/25 05:41 WBC 7.1 RBC 4.27 Hgb 11.2 L Hct 35.0 L MCV 82.0 MCH 26.2 MCHC 32.0 RDW 13.2 Plt Count 240 MPV 8.6 Sodium 135 L Potassium 4.3 Chloride 106 Carbon Dioxide 22 Anion Gap 7 BUN 5 L Creatinine 0.77 Estim Creat Clear Calc 89 Estimated GFR > 60 Glucose 99 Calcium 8.8 Total Bilirubin 0.8 AST 80 H ALT 57 H Alkaline Phosphatase 92 Total Protein 6.6 Albumin 3.7
--- NOTE | 2025-03-26 09:51 | ECG_ITS ---
Test Date: 2025-03-26 10:07:04 Measurements Intervals [place] Rate: 81 P: 28 MO: 150 QRS: 47 QRSD: 79 T: 13 QT: 399 QTc: 464 Interpretive Statements SINUS RHYTHM WITH SINUS ARRHYTHMIA BASELINE WANDER- V5 NORMAL ECG No previous ECG available for comparison Electronically Signed On 03-26-2025 12:30:05 CDT by Trevon Gutierrez D.O.
--- NOTE | 2025-03-26 10:41 | P.PNIM_ITS ---
Progress Note: A&P Assessment and Plan (1) Acute calculous cholecystitis: Code(s): K80.00 - Calculus of gallbladder with acute cholecystitis without obstruction Status: Acute Assessment and Plan: * CT abd/pelvis: * Uterus and ovaries are markedly heterogeneous with a small amount of surrounding fluid and fat stranding. Findings are nonspecific. An infectious process is possible. Other etiologies are possible. A pelvic ultrasound is recommended. * No CT evidence for acute appendicitis. * Moderate amount of sludge in the gallbladder. Mild central intrahepatic biliary ductal dilatation. An ultrasound of the gallbladder is suggested. * RUQ US: There are gallstones and sludge in the gallbladder. There is a sonographic Meek's sign. The findings are concerning for acute cholecystitis. However, there is no gallbladder wall thickening. Consider a HIDA scan for further evaluation. * clear liquid diet -> NPO at midnight * IV fluids * Analgesics prn * General Surgery consulted * IOC concerning for possible distal CBD stone. Radiologist review showed mild common hepatic and CBD dilation, and small filling defect in right hepatic bile duct branch, presumably a gas bubble. * Plan for ERCP through GI * GI consulted * ERCP today @ 1330 - remain NPO (2) Transaminitis: Code(s): R74.01 - Elevation of levels of liver transaminase levels Status: Acute Assessment and Plan: * total bilirubin 1.5, AST 99, ALT 69 * high suspicion for mild transaminitis secondary to gallstones. MRCP to be completed tomorrow on 03/25. Further plan of care depending on findings. * trend * 03/26: AST/ALT 80/57 (3) Chest pain: Code(s): R07.9 - Chest pain, unspecified Status: Acute Assessment and Plan: * Upper abdominal/lower chest pressure, chest wall non-tender to palpation, no murmur, adventitious lung sounds * Monitor vital signs, I&Os, chest pain, shortness of breath * Monitor serum electrolytes, and cbc * EKG: NSR * Likely 2/2 to Lap shilpi procedure, no red flag sx (4) Abnormal urinalysis: Code(s): R82.90 - Unspecified abnormal findings in urine Status: Acute Assessment and Plan: * UA: showed possible infection versus contamination * UC obtained on 03/24 * NGTD * Denies any current urinary symptoms. Plan Diet: Clear liquid -> NPO midnight GI Prophylaxis: N/a DVT Prophylaxis: SCDs IV fluids: 1L -> 125 mL/hour Lines/Tubes: Peripheral IV Code Status: Full code Subjective Date/time seen: 03/26/25 10:41 Interval history: 20 y/o F with PMH of presents here with abdominal pain. The patient presents here from home for further evaluation of abdominal pain. She reports onset of right sided abdominal pain starting around February 26. 03/26/2025 Patient sitting in bed time at time of examination. Laparoscopic cholecystectomy with IOC performed yesterday without complications, GI consulted regarding Acute calculous cholecystitis, planning for ERCP today. Keep patient NPO. On exam this AM, pt was endorsing some slight upper abdominal/lower chest pressure - EKG obtained and showed NSR. Denies any SOB, n/v, headaches, dizziness, or lower abdominal pain at this time. Pt otherwise has no complaints. Tentatively planned for ERCP @ 1330. Review of Systems Review of Systems: All systems reviewed & are unremarkable except as noted in HPI and below Exam Const: General: comfortable and no acute distress Other: female, nontoxic appearance HENMT: Face/Nose/Sinus: Normal nares present Mouth: Yes moist mucous membranes Eyes: General: appearance normal, both eyes and all related structures Sclera: sclerae normal Pupils: Equal, round and reactive pupils present EOM: EOMs intact bilaterally Resp: Effort & Inspection: normal respiratory effort Auscultation: clear to auscultation bilaterally Cardio: Rate: regular rate Rhythm: regular rhythm Other: S1-S2 present without murmur, rub, ectopy GI: Other: no abdominal wall ecchymosis, non-distended and incision (dry and glue intact). Soft to palpation. Normal bowel sounds Skin: General skin exam: normal color and no rashes or lesions noted Wounds: no wounds Neuro: Cranial nerves: Yes Equal, round and reactive pupils present Speech: normal speech Motor exam (neuro): 5/5 motor strength present throughout Sensory Exam: normal sensation Other: A&O x4 Extrem: General: normal to inspection Psych: Mental Status: mental status grossly normal Affect: normal affect Other: Good insight and judgment, pleasant Objective Data Vital Signs Vital Signs: Vital Signs - 24 hr 03/25/25 13:31 03/25/25 16:03 03/25/25 18:08 Temperature 98.8 F 98.2 F 97 F L Pulse Rate 60 67 82 Respiratory Rate 16 16 19 Blood Pressure 116/67 122/74 107/64 Pulse Oximetry 100 100 99 Oxygen Delivery Room Air Simple Face Mask Oxygen Flow Rate 8 Fraction of Inspired Oxygen 03/25/25 18:23 03/25/25 18:38 03/25/25 18:53 Temperature Pulse Rate 83 85 68 Respiratory Rate 11 L 17 17 Blood Pressure 131/77 123/78 118/69 Pulse Oximetry 97 96 99 Oxygen Delivery Room Air Room Air Room Air Oxygen Flow Rate Fraction of Inspired Oxygen 03/25/25 19:07 03/25/25 19:39 03/25/25 20:39 Temperature 98.0 F 98.1 F 97.9 F Pulse Rate 64 74 72 Respiratory Rate 17 17 18 Blood Pressure 116/69 118/71 125/64 Pulse Oximetry 94 100 98 Oxygen Delivery Oxygen Flow Rate Fraction of Inspired Oxygen 03/25/25 21:18 03/25/25 21:50 03/26/25 00:34 Temperature 97.9 F 97.6 F Pulse Rate 72 72 59 L Respiratory Rate 18 18 17 Blood Pressure 125/64 125/67 Pulse Oximetry 98 98 99 Oxygen Delivery Room Air Oxygen Flow Rate Fraction of Inspired Oxygen 21 03/26/25 04:39 03/26/25 08:40 03/26/25 09:55 Temperature 97.6 F Pulse Rate 58 L 62 Respiratory Rate 16 Blood Pressure 116/70 120/71 Pulse Oximetry 99 100 Oxygen Delivery Room Air Room Air Oxygen Flow Rate Fraction of Inspired Oxygen Intake/Output Intake/Output: Intake & Output 03/23/25 03/24/25 03/25/25 03/26/25 23:59 23:59 23:59 23:59 Intake Total 2019.8 2321.3 1000 Balance 2019.8 2321.3 1000 Meds/Results Medications: Active Medications Generic Name Dose Route Start Last Admin Trade Name Freq PRN Reason Stop Dose Admin Acetaminophen 500 mg 03/25/25 18:54 Acetaminophen 500 Mg Tablet PO Q6H PRN Pain Rated 1-3 Hydrocodone Bitart/Acetaminophen 1 tab 03/25/25 18:54 03/26/25 06:21 Hydrocodone/Acetaminophen (*Crx) 5-325 Mg Tablet PO 1 tab Q4H PRN Administration Pain Rated 4-6 Hydrocodone Bitart/Acetaminophen 1 tab 03/25/25 18:54 03/26/25 01:52 Hydrocodone/Acetaminophen (*Crx) 7.5-325 Mg Tablet PO 1 tab Q4H PRN Administration Pain Rated 7-10 Diphenhydramine HCl 25 mg 03/25/25 18:54 Diphenhydramine Hcl Inj 50 Mg/Ml Vial IV PUSH Q6H PRN Itching Lactated Ringer's 1,000 mls @ 100 mls/hr 03/25/25 18:54 03/26/25 07:29 Lr - Lactated Ringers Iv IV CONT 0 mls/hr .Q10H FRANCO Infusion Miscellaneous Information 0 each 03/24/25 00:01 Norethindrone-E. Nonform If Pt Can Bring From Home Send To Pharmacy For Verification Once XX 04/23/25 00:00 CLARIFY FRANCO Morphine Sulfate 2 mg 03/25/25 18:54 Morphine Sulfate (*Crx) 2 Mg/Ml Inj IV PUSH Q2H PRN Breakthrough Pain Rated 4-6 or NPO Morphine Sulfate 4 mg 03/25/25 18:54 Morphine Sulfate (*Crx) 4 Mg/Ml Inj IV PUSH Q2H PRN Breakthrough Pain Rated 7-10 or NPO Naloxone HCl 0.1 mg 03/25/25 18:54 Naloxone Hcl 0.4 Mg/Ml Vial IV PUSH Q2M PRN Opiate Reversal Non-Formulary Medication 1 tablet 03/24/25 21:00 Norethindrone-E.Estradiol-Iron [Gume Fe 09/01 ()] PO 04/23/25 20:59 HS FRANCO Ondansetron HCl 4 mg 03/25/25 18:54 Ondansetron Inj 4 Mg/2 Ml Vial IV PUSH Q4H PRN Nausea And Vomiting Radiology Results: ITS Impressions Abdomen/Pelvis CT 03/24/25 11:59 IMPRESSION: 1. Uterus and ovaries are markedly heterogeneous with a small amount of surrounding fluid and fat stranding. Findings are nonspecific. An infectious process is possible. Other etiologies are possible. A pelvic ultrasound is recommended. 2. No CT evidence for acute appendicitis. 3. Moderate amount of sludge in the gallbladder. Mild central intrahepatic biliary ductal dilatation. An ultrasound of the gallbladder is suggested. Upper Quadrant Ultrasound 03/24/25 13:54 IMPRESSION: 1: There are gallstones and sludge in the gallbladder. There is a sonographic Meek's sign. The findings are concerning for acute cholecystitis. However, there is no gallbladder wall thickening. Consider a HIDA scan for further evaluation. Pelvic/Transvag US 03/24/25 13:57 IMPRESSION: 1. Severe in section scar along the anterior lower uterine segment and 3.1 cm likely fibroid at the right-sided the uterine fundus. Cholangiogram,Operative 03/25/25 18:38 IMPRESSION: Intraoperative angiogram during endoscopic cholecystectomy. Please refer to the operative note for complete procedural details. Labs Labs: Laboratory Results - last 24 hr 03/26/25 05:41 WBC 7.1 RBC 4.27 Hgb 11.2 L Hct 35.0 L MCV 82.0 MCH 26.2 MCHC 32.0 RDW 13.2 Plt Count 240 MPV 8.6 Sodium 135 L Potassium 4.3 Chloride 106 Carbon Dioxide 22 Anion Gap 7 BUN 5 L Creatinine 0.77 Estim Creat Clear Calc 89 Estimated GFR > 60 Glucose 99 Calcium 8.8 Total Bilirubin 0.8 AST 80 H ALT 57 H Alkaline Phosphatase 92 Total Protein 6.6 Albumin 3.7 Quality VTE Prophylaxis VTE prophylaxis: mechanical ordered
[2025-03-26] MEDS: MORPHINE SULFATE (*CRX) 2 MG/ML INJ IV PUSH (11:58)
--- NOTE | 2025-03-26 12:38 | WPDANESPN ---
Anes - Prog Note Post-Op Date/Time: 03/26/25 12:38 Cardiovascular status: normal Respiratory status: normal Airway patency: baseline Mental status: baseline Vital Signs: Last Vital Signs Temp 36.4 C 03/26/25 04:39 Pulse 62 03/26/25 09:55 Resp 16 03/26/25 04:39 BP 120/71 03/26/25 09:55 Pulse Ox 100 03/26/25 09:55 O2 Del Method Room Air 03/26/25 09:55 O2 Flow Rate 8 03/25/25 18:08 FiO2 21 03/25/25 21:50 Pain Score (VAS): 3 I/O: Intake & Output 03/25/25 03/26/25 03/26/25 23:59 07:59 15:59 Intake Total 415 1000 Balance 415 1000 Laboratory Tests 03/26/25 05:41 03/26/25 05:41 03/26/25 05:41 WBC 7.1 RBC 4.27 Hgb 11.2 L Hct 35.0 L MCV 82.0 MCH 26.2 MCHC 32.0 RDW 13.2 Plt Count 240 MPV 8.6 Sodium 135 L Potassium 4.3 Chloride 106 Carbon Dioxide 22 Anion Gap 7 BUN 5 L Creatinine 0.77 Estim Creat Clear Calc 89 Estimated GFR > 60 Glucose 99 Calcium 8.8 Total Bilirubin 0.8 AST 80 H ALT 57 H Alkaline Phosphatase 92 Total Protein 6.6 Albumin 3.7 Microbiology 03/24/25 10:59 Urine Clean Catch Urine Culture - Final Patient Feedback: Patient satisfied with anesthetic care.
--- NOTE | 2025-03-26 13:00 | P.PNAN_ITS ---
Anes - Initial Pre Proc Eval Procedure: Operation Date: 03/26/25 14:00 Proposed Procedures p Endoscopic Retro Cholangiopancreatogram - Wyatt Chong MD Date/Time: 03/26/25 13:00 Surgeon: Facundo Jurado MD Pre Op Diagnosis: biliary colic Patient Data Age: 20 Gender: F Height: 1.52 m Weight: 73.5 kg Last Vital Signs Temp 36.4 C 03/26/25 04:39 Pulse 62 03/26/25 09:55 Resp 16 03/26/25 04:39 BP 120/71 03/26/25 09:55 Pulse Ox 100 03/26/25 09:55 O2 Del Method Room Air 03/26/25 09:55 O2 Flow Rate 8 03/25/25 18:08 FiO2 21 03/25/25 21:50 Allergies Allergy/AdvReac Type Severity Reaction Status Date / Time No Known Allergies Allergy Verified 03/24/25 17:50 Home Medications ?Medication ?Instructions ?Recorded ?Confirmed ?Type acetaminophen 500 mg capsule 500 mg PO Q6H PRN pain #14 caps 08/03/23 03/24/25 Rx norethindrone 1 mg-ethinyl 1 tablet PO HS 03/24/25 03/24/25 History estradiol 20 mcg (21)-iron 75 mg (7) tablet (Gume Fe 09/01 (28)) Laboratory Tests 03/26/25 05:41 WBC 7.1 K/mm3 (4.5-10.0) RBC 4.27 M/mm3 (4.2-5.4) Hgb 11.2 L g/dL (12.0-15.0) Hct 35.0 L % (37.0-47.0) MCV 82.0 fl (80-100) MCH 26.2 pg (26-34) MCHC 32.0 g/dl (32-36) RDW 13.2 % (11.5-14.5) Plt Count 240 k/mm3 (150-375) MPV 8.6 fl (7.4-10.4) Sodium 135 L mmol/L (137-145) Potassium 4.3 mmol/L (3.4-5.0) Chloride 106 mmol/L (98-107) Carbon Dioxide 22 mmol/L (22-30) Anion Gap 7 mmol/L (4-12) BUN 5 L mg/dL (7-17) Creatinine 0.77 mg/dL (0.7-1.0) Estim Creat Clear Calc 89 ml/min Estimated GFR > 60 (59 - ) Glucose 99 mg/dL (65-110) Calcium 8.8 mg/dL (8.4-10.2) Total Bilirubin 0.8 mg/dL (0.2-1.3) AST 80 H U/L (14-36) ALT 57 H U/L (6-35) Alkaline Phosphatase 92 U/L (38-126) Total Protein 6.6 g/dL (6.3-8.2) Albumin 3.7 g/dL (3.5-5.1) Patient hx anesthesia problems: none Family hx anesthesia problems: none Results Review: All pre-operative results and documents have been reviewed as part of the pre- operative evaluation. [facility] Past Medical History Medical History Fibroid, uterine Surgical History Surgical History History of section Family History Family History Grandparent Diabetes mellitus Grandparent Diabetes mellitus Social History Social History Smoking status: Never smoker Alcohol intake: current Drinks per week: 1 Substance use: never Lack of Transportation: No Lack of Food: Never True Current Housing: I Have Housing Concerned About Future Housing: No Difficulty Paying Gas/Electric Bills: No Difficulty Paying for Meds: No Currently Unemployed: YES Education: High School Diploma/GED Difficulty w/ Childcare or Family Care: No Spiritual care concerns: No Anes - Eval Final PreProcedure Day of Procedure 03/26/25 13:00 Patient weight: obese Heart: regular rate and rhythm Lungs: clear to auscultation Airway: Mallampati scale class II Neurological: alert and oriented Last oral intake: >/= 8 hours ASA classification: II Emergent: no Anesthetic plan: proceed Anesthesia type and monitoring: general ETT and standard monitoring Results Review: All pre-operative results and documents have been reviewed as part of the pre- operative evaluation. Informed Consent: The patient's anesthetic plan and its attendant risks and benefits were discussed with the patient/family/POA. Questions were solicited and answers provided to the satisfaction of the patient/family/POA.
[2025-03-26] MEDS: INDOMETHACIN 50 MG SUPP.RECT 100 MG RECTAL (13:08)
[2025-03-26] MEDS: LACTATED RINGERS 1,000 ML 150 ML IV CONT (13:08)
--- NOTE | 2025-03-26 15:19 | WPDGIPROGNO ---
Progress Note: A&P Assessment and Plan (1) Acute calculous cholecystitis: Code(s): K80.00 - Calculus of gallbladder with acute cholecystitis without obstruction Status: Acute Assessment and Plan: See ERCP report. There were no residual common bile duct stones found. However, intraoperative cholangiogram and aspect of the patella suggest inflammation of the sphincter of Oddi from stone passage. Due to the difficulty cannulating the common bile duct, a stent was left in the pancreatic duct and should be assessed in 2 weeks. Will order a plain film in 2 weeks, most of the times those small stents fall out spontaneously. If the x-ray shows the stent still in the area of the pancreas, will schedule an outpatient ERCP with pancreatic stent removal. The patient can be watched overnight and discharged tomorrow. Subjective Date/time seen: 03/26/25 15:19 Objective Data Vital Signs Vital Signs: Vital Signs - 24 hr 03/25/25 16:03 03/25/25 18:08 03/25/25 18:23 Temperature 98.2 F 97 F L Pulse Rate 67 82 83 Respiratory Rate 16 19 11 L Blood Pressure 122/74 107/64 131/77 Pulse Oximetry 100 99 97 Oxygen Delivery Room Air Simple Face Mask Room Air Oxygen Flow Rate 8 Fraction of Inspired Oxygen 03/25/25 18:38 03/25/25 18:53 03/25/25 19:07 Temperature 98.0 F Pulse Rate 85 68 64 Respiratory Rate 17 17 17 Blood Pressure 123/78 118/69 116/69 Pulse Oximetry 96 99 94 Oxygen Delivery Room Air Room Air Oxygen Flow Rate Fraction of Inspired Oxygen 03/25/25 19:39 03/25/25 20:39 03/25/25 21:18 Temperature 98.1 F 97.9 F 97.9 F Pulse Rate 74 72 72 Respiratory Rate 17 18 18 Blood Pressure 118/71 125/64 125/64 Pulse Oximetry 100 98 98 Oxygen Delivery Oxygen Flow Rate Fraction of Inspired Oxygen 03/25/25 21:50 03/26/25 00:34 03/26/25 04:39 Temperature 97.6 F 97.6 F Pulse Rate 72 59 L 58 L Respiratory Rate 18 17 16 Blood Pressure 125/67 116/70 Pulse Oximetry 98 99 99 Oxygen Delivery Room Air Oxygen Flow Rate Fraction of Inspired Oxygen 21 03/26/25 08:40 03/26/25 09:55 03/26/25 13:09 Temperature 98.0 F Pulse Rate 62 65 Respiratory Rate 18 Blood Pressure 120/71 125/63 Pulse Oximetry 100 100 Oxygen Delivery Room Air Room Air Room Air Oxygen Flow Rate Fraction of Inspired Oxygen Intake/Output Intake/Output: Intake & Output 03/23/25 03/24/25 03/25/25 03/26/25 23:59 23:59 23:59 23:59 Intake Total 2020.8 2321.3 1000 Balance 2020.8 2321.3 1000 Meds/Results Medications: Active Medications Generic Name Dose Route Start Last Admin Trade Name Freq PRN Reason Stop Dose Admin Acetaminophen 500 mg 03/25/25 18:54 Acetaminophen 500 Mg Tablet PO Q6H PRN Pain Rated 1-3 Hydrocodone Bitart/Acetaminophen 1 tab 03/25/25 18:54 03/26/25 06:21 Hydrocodone/Acetaminophen (*Crx) 5-325 Mg Tablet PO 1 tab Q4H PRN Administration Pain Rated 4-6 Hydrocodone Bitart/Acetaminophen 1 tab 03/25/25 18:54 03/26/25 01:52 Hydrocodone/Acetaminophen (*Crx) 7.5-325 Mg Tablet PO 1 tab Q4H PRN Administration Pain Rated 7-10 Diphenhydramine HCl 25 mg 03/25/25 18:54 Diphenhydramine Hcl Inj 50 Mg/Ml Vial IV PUSH Q6H PRN Itching Lactated Ringer's 1,000 mls @ 100 mls/hr 03/25/25 18:54 03/26/25 11:26 Lr - Lactated Ringers Iv IV CONT 100 mls/hr .Q10H FRANCO Infusion Lactated Ringer's 1,000 mls @ 150 mls/hr 03/26/25 13:00 03/26/25 13:08 Lr - Lactated Ringers Iv IV CONT 150 mls/hr .Q6H40M FRANCO Administration Miscellaneous Information 0 each 03/24/25 00:01 Norethindrone-E. Nonform If Pt Can Bring From Home Send To Pharmacy For Verification Once XX 04/23/25 00:00 CLARIFY FRANCO Morphine Sulfate 2 mg 03/25/25 18:54 03/26/25 11:58 Morphine Sulfate (*Crx) 2 Mg/Ml Inj IV PUSH 2 mg Q2H PRN Administration Breakthrough Pain Rated 4-6 or NPO Morphine Sulfate 4 mg 03/25/25 18:54 Morphine Sulfate (*Crx) 4 Mg/Ml Inj IV PUSH Q2H PRN Breakthrough Pain Rated 7-10 or NPO Naloxone HCl 0.1 mg 03/25/25 18:54 Naloxone Hcl 0.4 Mg/Ml Vial IV PUSH Q2M PRN Opiate Reversal Non-Formulary Medication 1 tablet 03/24/25 21:00 Norethindrone-E.Estradiol-Iron [Gume Fe 09/01 (28)] PO 04/23/25 20:59 HS FRANCO Ondansetron HCl 4 mg 03/25/25 18:54 Ondansetron Inj 4 Mg/2 Ml Vial IV PUSH Q4H PRN Nausea And Vomiting Radiology Results: ITS Impressions Abdomen/Pelvis CT 03/24/25 11:59 IMPRESSION: 1. Uterus and ovaries are markedly heterogeneous with a small amount of surrounding fluid and fat stranding. Findings are nonspecific. An infectious process is possible. Other etiologies are possible. A pelvic ultrasound is recommended. 2. No CT evidence for acute appendicitis. 3. Moderate amount of sludge in the gallbladder. Mild central intrahepatic biliary ductal dilatation. An ultrasound of the gallbladder is suggested. Upper Quadrant Ultrasound 03/24/25 13:54 IMPRESSION: 1: There are gallstones and sludge in the gallbladder. There is a sonographic Meek's sign. The findings are concerning for acute cholecystitis. However, there is no gallbladder wall thickening. Consider a HIDA scan for further evaluation. Pelvic/Transvag US 03/24/25 13:57 IMPRESSION: 1. Severe in section scar along the anterior lower uterine segment and 3.1 cm likely fibroid at the right-sided the uterine fundus. Cholangiogram,Operative 03/25/25 18:38 IMPRESSION: Intraoperative angiogram during endoscopic cholecystectomy. Please refer to the operative note for complete procedural details. Labs Labs: Laboratory Results - last 24 hr 03/26/25 05:41 WBC 7.1 RBC 4.27 Hgb 11.2 L Hct 35.0 L MCV 82.0 MCH 26.2 MCHC 32.0 RDW 13.2 Plt Count 240 MPV 8.6 Sodium 135 L Potassium 4.3 Chloride 106 Carbon Dioxide 22 Anion Gap 7 BUN 5 L Creatinine 0.77 Estim Creat Clear Calc 89 Estimated GFR > 60 Glucose 99 Calcium 8.8 Total Bilirubin 0.8 AST 80 H ALT 57 H Alkaline Phosphatase 92 Total Protein 6.6 Albumin 3.7
[2025-03-26] MEDS: ACETAMINOPHEN 500 MG TABLET PO ×2 (20:05→21:00)
[2025-03-27 05:32] VITALS: BP 106/51; PULSE 68; RESP 17; TEMP 36.8; O2SAT 98
[2025-03-27] MEDS: ACETAMINOPHEN 500 MG TABLET PO (06:12)
--- NOTE | 2025-03-27 07:29 | WPDGIPROGNO ---
Progress Note: A&P Assessment and Plan (1) Acute calculous cholecystitis: Code(s): K80.00 - Calculus of gallbladder with acute cholecystitis without obstruction Status: Acute Assessment and Plan: Patients and a night with no pain, nausea, vomiting or fever. She can be discharged. Case discussed with Dr. Miller. a pancreatic stent is left in place, and should come out in 2 weeks. A plain abdominal film is ordered to see if the stent fell out spontaneously. If not, will order an endoscopy to remove. Subjective Date/time seen: 03/27/25 07:29 Objective Data Vital Signs Vital Signs: Vital Signs - 24 hr 03/26/25 08:40 03/26/25 09:55 03/26/25 13:09 Temperature 98.0 F Pulse Rate 62 65 Respiratory Rate 18 Blood Pressure 120/71 125/63 Pulse Oximetry 100 100 Oxygen Delivery Room Air Room Air Room Air Oxygen Flow Rate 03/26/25 15:18 03/26/25 15:28 03/26/25 15:38 Temperature 97.9 F Pulse Rate 95 61 66 Respiratory Rate 20 18 18 Blood Pressure 132/91 H 131/76 133/79 Pulse Oximetry 100 100 100 Oxygen Delivery Simple Face Mask Simple Face Mask Room Air Oxygen Flow Rate 8 8 03/26/25 15:48 03/26/25 15:58 03/26/25 16:08 Temperature Pulse Rate 75 65 60 Respiratory Rate 16 19 17 Blood Pressure 120/80 125/83 124/76 Pulse Oximetry 100 100 98 Oxygen Delivery Room Air Room Air Room Air Oxygen Flow Rate 03/26/25 16:25 03/26/25 16:40 03/26/25 20:26 Temperature 97.9 F 97.6 F 98.4 F Pulse Rate 60 63 73 Respiratory Rate 16 16 17 Blood Pressure 137/72 136/76 114/75 Pulse Oximetry 100 99 100 Oxygen Delivery Oxygen Flow Rate 03/27/25 05:32 Temperature 98.3 F Pulse Rate 68 Respiratory Rate 17 Blood Pressure 106/51 L Pulse Oximetry 98 Oxygen Delivery Oxygen Flow Rate Intake/Output Intake/Output: Intake & Output 03/24/25 03/25/25 03/26/25 03/27/25 23:59 23:59 23:59 23:59 Intake Total 2019.8 2321.3 1440 450 Balance 232.3 1440 450 Meds/Results Medications: Active Medications Generic Name Dose Route Start Last Admin Trade Name Freq PRN Reason Stop Dose Admin Acetaminophen 500 mg 03/25/25 18:54 03/27/25 06:12 Acetaminophen 500 Mg Tablet PO 500 mg Q6H PRN Administration Pain Rated 1-3 Hydrocodone Bitart/Acetaminophen 1 tab 03/25/25 18:54 03/26/25 06:21 Hydrocodone/Acetaminophen (*Crx) 5-325 Mg Tablet PO 1 tab Q4H PRN Administration Pain Rated 4-6 Hydrocodone Bitart/Acetaminophen 1 tab 03/25/25 18:54 03/26/25 01:52 Hydrocodone/Acetaminophen (*Crx) 7.5-325 Mg Tablet PO 1 tab Q4H PRN Administration Pain Rated 7-10 Diphenhydramine HCl 25 mg 03/25/25 18:54 Diphenhydramine Hcl Inj 50 Mg/Ml Vial IV PUSH Q6H PRN Itching Miscellaneous Information 0 each 03/24/25 00:01 Norethindrone-E. Nonform If Pt Can Bring From Home Send To Pharmacy For Verification Once XX 04/23/25 00:00 CLARIFY FRANCO Morphine Sulfate 2 mg 03/25/25 18:54 03/26/25 11:58 Morphine Sulfate (*Crx) 2 Mg/Ml Inj IV PUSH 2 mg Q2H PRN Administration Breakthrough Pain Rated 4-6 or NPO Morphine Sulfate 4 mg 03/25/25 18:54 Morphine Sulfate (*Crx) 4 Mg/Ml Inj IV PUSH Q2H PRN Breakthrough Pain Rated 7-10 or NPO Naloxone HCl 0.1 mg 03/25/25 18:54 Naloxone Hcl 0.4 Mg/Ml Vial IV PUSH Q2M PRN Opiate Reversal Non-Formulary Medication 1 tablet 03/24/25 21:00 Norethindrone-E.Estradiol-Iron [Gume Fe 09/01 ()] PO 04/23/25 20:59 HS FRANCO Ondansetron HCl 4 mg 03/25/25 18:54 Ondansetron Inj 4 Mg/2 Ml Vial IV PUSH Q4H PRN Nausea And Vomiting Radiology Results: ITS Impressions Abdomen/Pelvis CT 03/24/25 11:59 IMPRESSION: 1. Uterus and ovaries are markedly heterogeneous with a small amount of surrounding fluid and fat stranding. Findings are nonspecific. An infectious process is possible. Other etiologies are possible. A pelvic ultrasound is recommended. 2. No CT evidence for acute appendicitis. 3. Moderate amount of sludge in the gallbladder. Mild central intrahepatic biliary ductal dilatation. An ultrasound of the gallbladder is suggested. Upper Quadrant Ultrasound 03/24/25 13:54 IMPRESSION: 1: There are gallstones and sludge in the gallbladder. There is a sonographic Meek's sign. The findings are concerning for acute cholecystitis. However, there is no gallbladder wall thickening. Consider a HIDA scan for further evaluation. Pelvic/Transvag US 03/24/25 13:57 IMPRESSION: 1. Severe in section scar along the anterior lower uterine segment and 3.1 cm likely fibroid at the right-sided the uterine fundus. Cholangiogram,Operative 03/25/25 18:38 IMPRESSION: Intraoperative angiogram during endoscopic cholecystectomy. Please refer to the operative note for complete procedural details.
--- NOTE | 2025-03-27 09:42 | P.DS_ITS ---
DS: Admitting Diagnosis Discharge Date 03/27/2025 Admitting Diagnosis Biliary colic DS: Discharge Diagnosis Discharge Diagnosis (1) Acute calculous cholecystitis: Code(s): K80.00 - Calculus of gallbladder with acute cholecystitis without obstruction Status: Acute (2) Transaminitis: Code(s): R74.01 - Elevation of levels of liver transaminase levels Status: Acute (3) Chest pain: Code(s): R07.9 - Chest pain, unspecified Status: Acute (4) Abnormal urinalysis: Code(s): R82.90 - Unspecified abnormal findings in urine Status: Acute DS: Summary Hospital Course Reason for hospitalization: abdominal pain Hospital Course: 20 y/o F with PMH of presents here with abdominal pain. The patient presents here from home for further evaluation of abdominal pain. She reports onset of right sided abdominal pain starting around February 26. She describes the pain as more so in her lower quadrant, radiation into her lower back, intermittent, and episodes last for a few hours. Abdominal pain is accompanied by a nausea and vomiting. She describes her emesis as bile like. Symptoms worsen postprandial. Will have episodes of sweating and cold sweats when the pain occurs. Endorses loss of appetite. She denies associated body aches, dysuria, hematuria, urinary frequency, or diarrhea. Initial VS at presentation: 97.8? F, HR 81, R 20, 107/73, and 98% on RA. ED workup showed: No leukocytosis, no anemia, no significant electrolyte derangements, total bilirubin 1.5 and AST 99/ALT T 69, UA showed possible infection versus contamination. HCG negative. CT of the abdomen/pelvis showed uterus/ovaries are markedly heterogeneous with a small amount of surrounding fluid and fat stranding, he no CT evidence of acute appendicitis, moderate amoun t of sludge in the gallbladder and mild central intrahepatic biliary ductal dilation. White upper quadrant ultrasound showed gallstones and sludge in the gallbladder with a positive sonographic Meek sign with no gallbladder wall thickening. Pelvic/transvaginal ultrasound showed a Caesarean section scar along the anterior lower uterine segment in the 3.1 cm likely fibroid at the right-sided uterine fundus. Patient was admitted and General surgery/GI was consulted. General surgery agrees that symptoms likely consistent with acute cholecystitis, will proceed with laparoscopic cholecystectomy with IOC, possibly open. This procedure was performed on 03/25 without complications. GI was then consulted regarding possible ERCP as there appeared to be mild common hepatic and common bile duct dilation ultrasound showed gallstones and sludge in the gallbladder. ERCP was performed on 03/26 which showed no stones or sludge with placement of endoscopic stent into biliary/pancreatic duct, recommends obtaining plain abdominal x-ray in the outpt setting to evaluate if stent has spontaneously fell out. On 03/27, patient endorses slight generalized abdominal discomfort, but otherwise has no c omplaints or concerns. Vital signs remained stable, patient is afebrile. Cleared for discharge per General surgery and GI. She has been given the appropriate follow-up information for general surgery and GI and can be discharged safely home at this time. Patient is amenable to this plan. Status at Discharge Functional status at discharge: independent ambulation Overall status at discharge: patient is back to baseline Time Spent with Patient Time attestation: Total time spent providing and/or coordinating discharge services: 34 Exam Const: General: comfortable and no acute distress Other: female, nontoxic appearance HENMT: Face/Nose/Sinus: Normal nares present Mouth: Yes moist mucous membranes Eyes: General: appearance normal, both eyes and all related structures Sclera: sclerae normal Pupils: Equal, round and reactive pupils present EOM: EOMs intact bilaterally Resp: Effort & Inspection: normal respiratory effort Auscultation: clear to auscultation bilaterally Cardio: Rate: regular rate Rhythm: regular rhythm Other: S1-S2 present without murmur, rub, ectopy GI: Other: Generalized abdominal tenderness, very mild. no abdominal wall ecchymosis, non- distended and incision (dry and glue intact). Soft to palpation. Normal bowel sounds Skin: General skin exam: normal color and no rashes or lesions noted Wounds: no wounds Neuro: Cranial nerves: Yes Equal, round and reactive pupils present Speech: normal speech Motor exam (neuro): 5/5 motor strength present throughout Sensory Exam: normal sensation Other: A&O x4 Extrem: General: normal to inspection Psych: Mental Status: mental status grossly normal Affect: normal affect Other: Good insight and judgment, pleasant DS: Data Data Completed and Pending Pending studies at discharge: Pending at discharge 03/25/25 17:51 Surgical [PTH] Routine Discharge Plan Discharge Attending physician on discharge: Wesly Guerrero Consulting providers: Ap Mcnamara; Jaya Broderick Discharging Clinician: Ap Mcnamara Anticipated Discharge Date/Time: 03/27/25 09:42 Patient Disposition: Home Activity: other - see discharge instructions Diet: low fat Wound Care Instructions: other - see discharge instructions Discharge Instructions: DISCHARGE INSTRUCTION SHEET FOR HERNIA, GALLBLADDER AND APPENDIX SURGERIES DR. BRODERICK PATIENT TO TAKE HOME 1. May shower, no soaking in bath x 2weeks. 2. Call office for: * Wound increasingly painful or bleeding * Vomiting * Fever of greater than 101 degrees 3. If no bowel movement for three days, take 1 oz. (30 ml) Milk of Magnesia or MiraLax 17g 1 to 2 times daily. 4. No heavy lifting > 10-15 pounds x 2 weeks for laparoscopic cholecystectomy or appendectomy. 5. No driving for 3 days or while taking narcotic pain medications. 6. Ice to surgical site for 48 hours (30 min on, then 30 min off). 7. Up walking 10-30 minutes three times per day. 8. Resume previous home medications. 9. Follow-up 10-14 days in office for wound check or as previously scheduled. ([phone]) 10. Oral pain medications prescription to be sent to pharmacy. Take Tylenol 500mg every 6 hours and Ibuprofen 600mg every 6 hours for the first 2 days, then as needed. 11. NUTRITION: Start out by drinking fluids and increase your diet as tolerated. If you experience nausea, try dry toast, crackers, and 7-UP. If nausea or vomiting persists, contact your surgeon?s office. 12. Gallbladders-Low Fat Diet for 2 weeks (send care note of low fat diet) 13. Inguinal Hernias-wear scrotal support for 48 hours 14. Abdominal Hernias-if sent home with abdominal binder, wear for the first 2 weeks (may remove to shower or at night to sleep). Revised December 2018 Patient Instructions: Antibiotic Form, Sugammadex (By injection) Patient Language: Persian Stand Alone Forms: General Discharge Information Follow-up/Referrals: UNKNOWN,DOCTOR [Primary Care Provider] - Jaya Broderick, DO [Physician] - 2 Weeks Discharge Medications: New hydrocodone-acetaminophen 5-325 mg tablet 1 tablet PO Q4H PRN (Reason: pain) Qty: 10 0RF Continued norethindrone-e.estradiol-iron [Gume Fe 09/01 (28)] 1 mg-20 mcg (21)/75 mg (7) tablet 1 tablet PO HS Discontinued acetaminophen 500 mg capsule 500 mg PO Q6H PRN (Reason: pain) Qty: 14 0RF Date of admission: 03/24/25 16:04 Primary Care Provider: UNKNOWN,DOCTOR Admitting Provider: Facundo Jurado Attending physician on admission: Facundo Jurado Condition: Stable Quality VTE Prophylaxis VTE prophylaxis: mechanical ordered
--- NOTE | 2025-03-27 09:50 | P.PNGS_ITS ---
Progress Note: A&P Assessment and Plan (1) Acute calculous cholecystitis: Code(s): K80.00 - Calculus of gallbladder with acute cholecystitis without obstruction Status: Acute Assessment and Plan: * Pod 2 status post laparoscopic cholecystectomy with IOC. ERCP performed by GI yesterday. No stones or sludge extracted, but 5 [place] single pigtail pancreatic stent placed due to small papillary orifice. GI okay with discharge. Patient is stable from surgical standpoint to be discharged home today with follow-up in the office in 2 weeks. (2) Transaminitis: Code(s): R74.01 - Elevation of levels of liver transaminase levels Status: Acute Assessment and Plan: * Total bilirubin normalized. See above. ERCP yesterday demonstrated a small papillary orifice of the ampulla. A 5 [place] single pigtail pancreatic stent was placed. A sphincterotomy was performed and a balloon was passed, but no stones were seen or extracted. GI ordered abdominal plain film to see if the stent fell out spontaneously. If not, they will order an endoscopy to remove it. Plan I have discussed the patient's case and plan of care with Dr. Miller. Subjective Subjective Date/Time Seen: 03/27/25 09:50 Patient reports: no new complaints, feels better, tolerating a regular diet and flatus Interval history: Patient is doing well today. Passing gas. Tolerating regular diet. Ambulating without assistance. Voiding appropriately. Pain tolerable with oral pain medication. Exam GI: Inspection: no abdominal wall ecchymosis, non-distended and incision (dry and glue intact) GI Palp: Yes Soft to palpation, Yes Tenderness to palpation present (GI) (Minimal pain around incisions.), No Guarding due to palpation present (GI) and No Hernia present Objective Data Vital Signs Vital Signs: Vital Signs - 24 hr 03/26/25 09:55 03/26/25 13:09 03/26/25 15:18 Temperature 98.0 F 97.9 F Pulse Rate 62 65 95 Respiratory Rate 18 20 Blood Pressure 120/71 125/63 132/91 H Pulse Oximetry 100 100 100 Oxygen Delivery Room Air Room Air Simple Face Mask Oxygen Flow Rate 8 03/26/25 15:28 03/26/25 15:38 03/26/25 15:48 Temperature Pulse Rate 61 66 75 Respiratory Rate 18 18 16 Blood Pressure 131/76 133/79 120/80 Pulse Oximetry 100 100 100 Oxygen Delivery Simple Face Mask Room Air Room Air Oxygen Flow Rate 8 03/26/25 15:58 03/26/25 16:08 03/26/25 16:25 Temperature 97.9 F Pulse Rate 65 60 60 Respiratory Rate 19 17 16 Blood Pressure 125/83 124/76 137/72 Pulse Oximetry 100 98 100 Oxygen Delivery Room Air Room Air Oxygen Flow Rate 03/26/25 16:40 03/26/25 20:26 03/27/25 05:32 Temperature 97.6 F 98.4 F 98.3 F Pulse Rate 63 73 68 Respiratory Rate 16 17 17 Blood Pressure 136/76 114/75 106/51 L Pulse Oximetry 99 100 98 Oxygen Delivery Oxygen Flow Rate Intake/Output Intake/Output: Intake & Output 03/24/25 03/25/25 03/26/25 03/27/25 23:59 23:59 23:59 23:59 Intake Total 2020.8 2321.3 1440 450 Balance 2019.8 2321.3 1440 450 Meds/Results Medications: Active Medications Generic Name Dose Route Start Last Admin Trade Name Freq PRN Reason Stop Dose Admin Acetaminophen 500 mg 03/25/25 18:54 03/27/25 06:12 Acetaminophen 500 Mg Tablet PO 500 mg Q6H PRN Administration Pain Rated 1-3 Hydrocodone Bitart/Acetaminophen 1 tab 03/25/25 18:54 03/26/25 06:21 Hydrocodone/Acetaminophen (*Crx) 5-325 Mg Tablet PO 1 tab Q4H PRN Administration Pain Rated 4-6 Hydrocodone Bitart/Acetaminophen 1 tab 03/25/25 18:54 03/26/25 01:52 Hydrocodone/Acetaminophen (*Crx) 7.5-325 Mg Tablet PO 1 tab Q4H PRN Administration Pain Rated 7-10 Diphenhydramine HCl 25 mg 03/25/25 18:54 Diphenhydramine Hcl Inj 50 Mg/Ml Vial IV PUSH Q6H PRN Itching Morphine Sulfate 2 mg 03/25/25 18:54 03/26/25 11:58 Morphine Sulfate (*Crx) 2 Mg/Ml Inj IV PUSH 2 mg Q2H PRN Administration Breakthrough Pain Rated 4-6 or NPO Morphine Sulfate 4 mg 03/25/25 18:54 Morphine Sulfate (*Crx) 4 Mg/Ml Inj IV PUSH Q2H PRN Breakthrough Pain Rated 7-10 or NPO Naloxone HCl 0.1 mg 03/25/25 18:54 Naloxone Hcl 0.4 Mg/Ml Vial IV PUSH Q2M PRN Opiate Reversal Ondansetron HCl 4 mg 03/25/25 18:54 Ondansetron Inj 4 Mg/2 Ml Vial IV PUSH Q4H PRN Nausea And Vomiting Radiology Results: ITS Impressions Abdomen/Pelvis CT 03/24/25 11:59 IMPRESSION: 1. Uterus and ovaries are markedly heterogeneous with a small amount of surrounding fluid and fat stranding. Findings are nonspecific. An infectious process is possible. Other etiologies are possible. A pelvic ultrasound is recommended. 2. No CT evidence for acute appendicitis. 3. Moderate amount of sludge in the gallbladder. Mild central intrahepatic biliary ductal dilatation. An ultrasound of the gallbladder is suggested. Upper Quadrant Ultrasound 03/24/25 13:54 IMPRESSION: 1: There are gallstones and sludge in the gallbladder. There is a sonographic Meek's sign. The findings are concerning for acute cholecystitis. However, there is no gallbladder wall thickening. Consider a HIDA scan for further evaluation. Pelvic/Transvag US 03/24/25 13:57 IMPRESSION: 1. Severe in section scar along the anterior lower uterine segment and 3.1 cm likely fibroid at the right-sided the uterine fundus. Cholangiogram,Operative 03/25/25 18:38 IMPRESSION: Intraoperative angiogram during endoscopic cholecystectomy. Please refer to the operative note for complete procedural details.
== END 2025-03-27 12:30 | disposition home or self-care (01) ==
LOC: ANHED 11:13 → ANH3MED 17:08
PROVIDERS: Internal Medicine Gastroenterology; Surgery; Admitting Provider General Practice; Emergency Provider Physician Assistant; Visit Provider Family Medicine
PROC: 0FT44ZZ Resection of Gallbladder, Percutaneous Endoscopic Approach (ICD-10-PCS; CPT 47562; principal; 2025-03-25 16:00)
PROC: (CPT 43260; principal; 2025-03-26 14:00)
DX: K80.64 Calculus of gallbladder and bile duct with chronic cholecystitis without obstruction (principal); R74.01 Elevation of levels of liver transaminase levels; K83.8 Other specified diseases of biliary tract; D64.9 Anemia, unspecified; R93.2 Abnormal findings on diagnostic imaging of liver and biliary tract; R07.9 Chest pain, unspecified; R82.90 Unspecified abnormal findings in urine
CPT/HCPCS: 47563; 43274; 36415; 74177; 74300; 74329; 76705; 76830; 76856; 80053; 81001; 81025; 83690; 85025; 85027; 87086; 88304; 93005; 96361; 96374; 96375; 96376; 99285; J0690; A9270; C2625; G0378; J0330; J1100; J1885; J2003; J2250; J2270; J2405; J2704; J3010; J7030; J7120; Q9966; Q9967